=== PATIENT | female | born 1945 | race Caucasian/White ===

== ENCOUNTER 2017-04-15 06:29 | Inpatient (IN) ==
--- NOTE | 2017-04-15 06:52 | EKG Report ---
Stationary ECG Study [facility] ER Test Date: 04/15/2017 6:49:31 AM Pat Name: MEGAN LESTER Department: Room: Gender: F Nuclear Scientist: : 1945 Requested by: Juan Manuel Patiño Order Number: [id number] Bianka MD: JACKSON MICHAEL Intervals [place] Rate: 64 P: 50 ND: 210 QRS: -4 QRSD: 97 T: 61 QT: 417 QTc: 427 Interpretive Statements SINUS RHYTHM WITH PROLONGED ND INTERVAL Electronically Signed On 04-18-17 18:30:34 CDT by JACKSON MICHAEL [email or web address]
[2017-04-15] MEDS ORDERED: DIPH/TET/ACEL PERT BOOSTER VACCINE 0.5 ML VIAL IM ONE ×2 (06:54→07:04)
[2017-04-15 07:07] LABS: Basophils # 0.1 10*3/uL (0.0-0.2); Basophils % 0.6 % (0.0-0.8); Eosinophils # 0.3 10*3/uL (0.0-0.87); Eosinophils % 3.4 % (0.00-10.9); Hematocrit 33.9 VOL% (35.7-47.0); Hemoglobin 11.8 GM/DL (12.0-16.0); Immature Granulocytes % 0.4 %; Immature Granulocytes Absolute 0.04 #; Lymphocytes % 11.4 % (21.3-54.2); Mean Corpuscular HGB Conc 34.8 GM/DL (32-36); Mean Corpuscular Hemoglobin 32 PG (27-34); Mean Corpuscular Volume 92.6 FL (87-102); Mean Platelet Volume 9.2 FL (9.6-12.0); Monocytes # 0.9 10*3/uL (0.11-0.8); Monocytes % 9.7 % (1.7-12.7); Neutrophils # 6.7 10*3/uL (1.4-7.4); Neutrophils % 74.5 % (38.7-73.9); Platelet Count 248 T/CUMM (130-400); Red Blood Count 3.66 MC/CUMM (3.8-5.5); Red Cell Distribution Width 11.7 % (9.3-17.3)
--- NOTE | 2017-04-15 07:18 | CT Report ---
CT head/brain wo con Indication: Syncope Comparison: CT brain dated April 11, 2014 Technique: Multiple axial tomographic images of the brain were obtained without the use of intravenous contrast. Findings: Midline structures are nondisplaced. There is no convincing evidence of acute intracranial hemorrhage . No convincing evidence of hydrocephalus. Mild global volume loss present. Mild periventricular and subcortical hypoattenuation noted which is nonspecific but consistent with chronic microvascular ischemic change. Demyelinating process and vasculitis less likely considerations. Atherosclerotic calcifications demonstrated. Old lacunar infarct of right caudate head The visualized paranasal sinuses and bilateral mastoid air cells are essentially clear. IMPRESSION: No acute intracranial abnormality demonstrated. Chronic findings as detailed above. The CT exam was performed using one or more of the following dose reduction techniques: Automated exposure control, adjustment of the mA and/or kV according to patient size, or use of iterative reconstruction technique. PROCEDURE INTERPRETED AT [facility] Final Report Signed by: Dr Manas Pruett
[2017-04-15 07:26] LABS: PT Patient Result 10.4 SECS; Partial Thromboplastin Time 26.9 SECS (0-40)
--- NOTE | 2017-04-15 07:26 | Emergency Department Note ---
Neftaly Berry Brooke, am scribing for, and in the presence of, Juan Manuel Arroyo MD 06:58 . Dina Berry James D, MD, personally performed the services described in this documentation, ascribed by Belen Higginbotham in my presence, and it is both accurate and complete . Arrival - Arrival Chief Complaint: Syncope Stated Complaint: passed out and fall -my right hip ED Nursing Triage Note: C/C left hip pain, contusion to left face secondary to fall. Pt states she had finished using restroom and was on her way back to bed when she passed out. Pt denies neck pain. Mode of Arrival: Wheelchair Limitations: No Limitations Source: Patient, RN Notes Reviewed Time Seen by Provider: 04/15/17 06:38 - History of Present Illness HPI Narrative: Patient is a 71 year old female who presents to the ED with c/o left hip pain. Patient says she got up between 2300 and 2330, last night, and she thinks she blacked out but does not "really remember" what happened. She fell into the bedroom door and is now complaining of left hip pain. She is able to get up and has been able to walk around a little bit. She also has a laceration and eccymosis near the left eye. There is not currently any active bleeding. Patient denies having any shortness of breath or chest pain but says she has had a non-productive cough. Patient has a history of afib but denies having a rapid heartbeat around the time of this episode. Patient also has PMHx of HTN, TIA, pneumonia, recurring urinary tract infections, colostomy, and vaginal prolapse(bladder tacked). Mg is not a smoker. Her Primary Care Provider is Dr. Bentley. She is unable to remember when she last received a tetanus shot. Onset (ago): hour(s) (7) Allergies/Adverse Reactions: Allergies Allergy/AdvReac Type Severity Reaction Status Date / Time No Known Allergies Allergy Verified 04/15/17 06:42 Home Medications: Home Medications Medication Instructions Recorded Confirmed Type Alendronate Sodium 35 mg PO DIRECTED 02/03/16 02/03/16 History Apixaban [Eliquis] 5 mg PO BID 02/03/16 02/03/16 History Carvedilol 12.5 mg PO BID 02/03/16 02/03/16 History Celecoxib [Celebrex] 100 mg PO BID 02/03/16 02/03/16 History Gabapentin 300 mg PO BEDTIME 02/03/16 02/03/16 History Losartan Potassium 50 mg PO DAILY 02/03/16 02/03/16 History NIFEdipine XL TAB [Procardia Xl] 30 mg PO BEDTIME 02/03/16 02/03/16 History Zolpidem [Ambien] 5 mg PO BEDTIME 02/03/16 02/03/16 History Review of System - Review of System 12 point system: reviewed and no additional remarkable complaints except as stated - Review of System Constitutional: Absent: fever Respiratory: Absent: respiratory distress Musculoskeletal: Present: other (left hip pain) Skin: Present: other (eccymosis and laceration near left eye). Absent: rash Medical,Surgical,& Family Hx - Medical History Cardio: History of: Cardiac Dysrhythmia (afib), Hypertension Neurology: History of: TIA Endocrine: No history of: Diabetes Mellitus (IDDM), Diabetes Mellitus (NIDDM) Respiratory: History of: Pneumonia Genitourinary: History of: Recurring Urinary Tract Infections, Problems ( bladder tacking, vaginal prolapse repair) Gastrointestinal: History of: GI Problems (Colostomy) - Surgical History Cardiac Surgeries: Sugical HX of: Carotid Endarterectomy (left) HEENT Surgeries: Surgical HX of: Carotid Endarterectomy (left) Abdominal Surgeries: Surgical HX of: Abdominal Surgery Reproductive Surgeries: Surgical HX of;: Hysterectomy Orthopedic Surgeries: Surgical HX of;: Orthopedic Surgery (right knee replacement) - Social History Smoking Status: Never smoker Frequency of Alcohol Use: None Type of Drug Use: None Exam Vital Signs: Vital Signs Temperature 98.3 F 04/15/17 06:34 Pulse Rate 66 04/15/17 07:28 Respiratory Rate 20 04/15/17 07:28 Blood Pressure 136/64 04/15/17 07:28 O2 Sat by Pulse Oximetry 97 04/15/17 07:28 GENERAL: This is a well-nourished well-developed white female in no apparent distress. VITAL SIGNS: Reviewed HEENT: 1 cm laceration involving the left supraorbital area. Pupils are equal round react to light. Extraocular movements are intact. Oropharynx is benign with moist mucous membranes. NECK: Neck is soft and supple without tenderness. There are no masses. There is no lymphadenopathy. LUNGS: Lungs are clear to auscultation. Chest rises symmetrically. There is no chest wall tenderness. CV: Heart is regular rate and rhythm with 2/6 to 3/6 systolic ejection murmur, harsh, loudest at the left sternal border. ABDOMEN: Abdomen is soft, nontender to palpation. There are no abdominal abnormal masses palpated. There is no organomegaly. Bowel sounds are present and active. SKIN: Skin is warm and dry. No rash. EXTREMITIES: External rotation of left lower extremity. Minimal tenderness to palpation overlying the left hip. There are no pops, clicks, or crepitus with passive range of motion. There is no pedal edema. NEUROLOGIC: Awake alert and oriented 4. Cranial nerves II through XII are grossly intact. Motor is 5 over 5 in all extremities bilaterally. Course - Consultations Consultation #1: Discussed with hospitalist. Patient will be admitted to their service Time: 08:26 Results - Labs CBC & BMP: 04/15/17 06:55 04/15/17 06:55 Lab Results: I have reviewed the patients labs Labs: Laboratory Tests 04/15/17 06:55 Troponin I < 0.015 - EKG EKG results: interpreted by ERMD - Impressions EKG: Normal sinus rhythm with a rate of 64, first-degree AV block, normal ST-T waves. - Diagnostic Findings Procedure: Chest x-ray: image reviewed by me (No infiltrates, no pleural effusions.), CT: image reviewed by me (CT head: No acute intracranial lesions or hemorrhage.), X-ray: image reviewed by me (Left hip x-ray: Questionable fracture of the greater trochanter.) Disposition Clinical Impression: Syncope, Fracture of left hip, greater troch., Heart murmur Case discussed with: patient Disposition: Still a Patient Condition: Stable Time of Disposition: 07:40
--- NOTE | 2017-04-15 07:38 | CT Report ---
CT hip LT wo con Indication: Left hip pain, fall Comparison: None Technique: Multiple axial tomographic images of the left hip were obtained without the use of intravenous contrast. Coronal and sagittal reformatted images provided. Findings: Acute, minimally comminuted, mildly displaced fracture involving the greater trochanter of the femur. Rectus diastases noted with prominent ventral abdominal hernia containing bowel. This appears similar to CT abdomen pelvis dated August 27, 2010. Status post hysterectomy. Atherosclerotic calcifications demonstrated. IMPRESSION: As above. The CT exam was performed using one or more of the following dose reduction techniques: Automated exposure control, adjustment of the mA and/or kV according to patient size, or use of iterative reconstruction technique. PROCEDURE INTERPRETED AT [facility] DEPARTMENT OF RADIOLOGY Final Report Signed by: Dr Manas Pruett
--- NOTE | 2017-04-15 07:52 | XRay Report ---
XR chest 1V portable Indication: Cough Comparison: Chest x-ray dated April 11, 2014 Technique: Single frontal view of the chest. Findings: The cardiomediastinal silhouette is stable in configuration. Chronic change of the lungs without focal consolidation, pleural effusion, or pneumothorax. Visualized osseous and surrounding soft tissue structures appear grossly unchanged. IMPRESSION: Stable chest x-ray without acute cardiopulmonary process demonstrated. PROCEDURE INTERPRETED AT [facility] DEPARTMENT OF RADIOLOGY Final Report Signed by: Dr Manas Pruett
--- NOTE | 2017-04-15 07:55 | XRay Report ---
XR hip 2v w pelvis LT Indication: Fall, left hip pain Comparison: None Technique: Single frontal view of the pelvis as well as frontal and frog-leg lateral views of the right hip. Findings: Diffuse osteopenia. Minimally displaced fracture involving the greater trochanter of the left femur. IMPRESSION: As above. PROCEDURE INTERPRETED AT [facility] Final Report Signed by: Dr Manas Pruett
[2017-04-15 08:11] LABS: Alanine Aminotransferase 18 U/L (13-56); Albumin 3.7 G/DL (3.4-5.0); Alkaline Phosphatase 56 U/L (45-117); Aspartate Amino Transferase 18 U/L (0-37); Blood Urea Nitrogen 28 MG/DL (7-18); Calcium 9.2 MG/DL (8.5-10.1); Glucose 101 MG/DL (74-106); Osmolality,Calculated 260.2 MOS/KG (273-304); Potassium 4.2 MMOL/L (3.5-5.1); Sodium 127 MMOL/L (136-145); Total Protein 7.3 G/DL (6.4-8.3); Troponin I Only < 0.015 NG/ML (0.00-0.045)
[2017-04-15] MEDS ORDERED: SODIUM CHLORIDE 0.9% 1,000 ML IV STA (08:42)
--- NOTE | 2017-04-15 09:22 | Hospitalist History & Physical ---
Addendum entered and electronically signed by Dale Franz NP 04/16/17 07: 09: Addendum to note. Pt. will be admitted to a monitored bed. Original Note: <Dale Franz - Last Filed: 04/15/17 09:20> Assessment and Plan (1) Hip fracture, left Status: Acute Assessment and plan: Consult surgery for evaluation. Current Visit: Yes (2) Syncope Status: Acute Assessment and plan: Admit to telemetry. Cardiac monitoring. Neuro monitoring. Routine vitals. Echo/ cartoid dopplers. Serial troponins. IV hydration. Review patient's home medications. TSH/UA Current Visit: Yes (3) Hyponatremia Status: Acute Assessment and plan: IV hydration. Recheck labs in am. Current Visit: Yes (4) Hypertension Status: Acute Assessment and plan: Pt.'s blood pressures are stable. Restart home meds if necessary Current Visit: Yes (5) Colostomy in place Status: Chronic Current Visit: Yes History of Present Illness Chief complaint: fall History of present illness: Ms. Woods is a 71 year old white female with a history of hypertension, afib, TIA, pneumonia, diverticulitis, carotid stenosis with carotid endarterectomy that presented to the ED with complaints of hip pain after a fall last night. Pt. is accompanied by her . She states that she got up to use the bathroom last night and "blacked out". Pt. states she fell but doesn't think she hit her head. She states that she has no recollection of what happen. Pt denies chest pain, nauseousness, vision changes, tinnitus, or shortness of breath during the event and now. Pt. reports several "dizzy" episodes in the last couple of months but none in the last few days. She does have a laceration around the left eye. Pt. states she was slightly confused after the fall and remained on the floor until her called granddaughter for assistance. She admits to taking painkillers at home for the left hip discomfort. She also says she is able to stand on the leg but briefly. She states she has changed one of her blood pressure medications (Losartan). Pt is seen by Dr. Bentley, Dr. Hernandez, and Dr. Caruso. Pt. is on Eliquis for afib. On examination in the ED, hip xray revealed mildly displaced fracture to left hip. CXR was stable. Pt's NA is 127 with a bun/creatinine of 28/1.40 respectively. Pt will be admitted to the hospitalist service for further evaluation and treatment. Home Medications Medication Instructions Recorded Confirmed Type Alendronate Sodium 35 mg PO FR 02/03/16 04/15/17 History Apixaban [Eliquis] 5 mg PO BID 02/03/16 04/15/17 History Gabapentin 300 - 600 mg PO BEDTIME 02/03/16 04/15/17 History Losartan Potassium 50 mg PO QAM 02/03/16 04/15/17 History NIFEdipine XL TAB [Procardia Xl] 30 mg PO BEDTIME 02/03/16 04/15/17 History Carvedilol [Carvedilol] 25 mg PO BID 04/15/17 04/15/17 History Fluticasone 50 Mcg Nasal [place] 1 spray BOTH NARES BID 04/15/17 04/15/17 History [Flonase Nasal [place]] HYDROcodone/ACETAMIN 7.5-325 1 tablet PO BID PRN 04/15/17 04/15/17 History [[place] 7.5-325] Montelukast Sodium 10 mg PO QAM 04/15/17 04/15/17 History Rosuvastatin Calcium [Rosuvastatin 20 mg PO BEDTIME 04/15/17 04/15/17 History Calcium] Zolpidem Tartrate [Zolpidem 10 mg PO BEDTIME 04/15/17 04/15/17 History Tartrate] Allergies Allergy/AdvReac Type Severity Reaction Status Date / Time No Known Allergies Allergy Verified 04/15/17 06:42 Medical,Surgical,& Family Hx - Medical History Cardio: History of: Cardiac Dysrhythmia (afib), Hypertension Neurology: History of: TIA Endocrine: No history of: Diabetes Mellitus (IDDM), Diabetes Mellitus (NIDDM) Respiratory: History of: Pneumonia Genitourinary: History of: Recurring Urinary Tract Infections, Problems ( bladder tacking, vaginal prolapse repair) Gastrointestinal: History of: GI Problems (Colostomy) - Surgical History Cardiac Surgeries: Sugical HX of: Carotid Endarterectomy (left) HEENT Surgeries: Surgical HX of: Carotid Endarterectomy (left) Abdominal Surgeries: Surgical HX of: Abdominal Surgery Reproductive Surgeries: Surgical HX of;: Hysterectomy Orthopedic Surgeries: Surgical HX of;: Orthopedic Surgery (right knee replacement) - Family History Family History: Reports;: Family Heart Disease - Social History Smoking Status: Never smoker Frequency of Alcohol Use: None Type of Drug Use: None Marital Status: Lives With:: Spouse Functional capacity: independent ambulation - Constitutional Constitutional: Absent: chills, fever(s) - EENT Eyes: Present: loss of vision Ears: Absent: decreased hearing Nose, mouth and throat: Absent: epistaxis, headache(s) - Cardiovascular Cardiovascular: Present: dyspnea on exertion. Absent: chest pain at rest, edema - Respiratory Respiratory: Present: cough - Gastrointestinal Gastrointestinal: Absent: abdominal pain, nausea, vomiting - Genitourinary Genitourinary: Absent: difficulty urinating - Musculoskeletal Musculoskeletal: Present: limited range of motion - Neurological Neurological: Present: dizziness. Absent: confusion, headache(s) - Psychiatric Psychiatric: Absent: anxiety, confusion - Endocrine Endocrine: Present: heat intolerance - Hematologic/Lymphatic Hematologic/Lymphatic: Present: easy bleeding, easy bruising Exam - Constitutional Vitals: Period Temp Pulse Resp BP Sys/Sarmiento Pulse Ox Last 24 Hr 98.3 F-98.3 F 66-68 16-20 111-136/53-68 96-98 General appearance: no acute distress, over weight - Head Head exam: Present: normal inspection, normocephalic - Eye Eye exam: Present: EOMI. Absent: scleral icterus Pupils: Present: PRIYA - ENT ENT exam: Present: normal exam - Neck Neck exam: Present: normal inspection - Respiratory Respiratory exam: Present: other (coarse) - Cardiovascular Cardiovascular exam: Present: regular rate and rhythm, other (murmur) - GI/Abdominal GI/Abdominal exam: Present: normal bowel sounds, soft, other (right side colostomy). Absent: tenderness - Extremities Exam Extremities exam: Present: normal capillary refill. Absent: full ROM, edema - Neurological Exam Neurological exam: Present: alert, oriented X3 - Psychiatric Psychiatric exam: Present: normal affect, normal mood - Skin Skin exam: Present: normal color, warm, dry Results - Labs CBC & BMP: 04/15/17 06:55 04/15/17 06:55 Lab Results: I have reviewed the past 24 hour labs <Eda Betancourt - Last Filed: 08/03/17 13:40> Assessment and Plan (1) Hip fracture, left Status: Acute Assessment and plan: will hold eliquis Current Visit: Yes (2) Syncope Status: Acute Assessment and plan: most likely due to orthostatic hypotension, gentle hydration with NS Current Visit: Yes (3) Hypertension Status: Acute Assessment and plan: most likely orthostatic will hold most of her blood pressure meds, cont coreg Current Visit: Yes (4) Hyponatremia Status: Acute Current Visit: Yes (5) Atrial fibrillation Status: Acute Assessment and plan: cont coreg, hold eliquis until decision about surgery is made Current Visit: Yes History of Present Illness History of present illness: Ms. Woods is a 71 year old female seen and examined. Agree with above, right index finger bruised and she hit her left eye. On eliquis for afib but is currently in SR. She may be orthostatic, blood pressure low in er. I will consult Dr. Ladd and hold her eliquis - Constitutional Constitutional: Absent: headache(s) - EENT Ears: Absent: ear discharge - Cardiovascular Cardiovascular: Present: dyspnea - Respiratory Respiratory: Present: dyspnea, dyspnea on exertion - Neurological Neurological: Present: syncope. Absent: focal weakness - Psychiatric Psychiatric: Present: depression - Endocrine Endocrine: Present: fatigue Exam - Constitutional Vitals: Period Temp Pulse Resp BP Sys/[place] Pulse Ox Last 24 Hr 97.6 F-98.3 F 66-80 16-20 111-143/53-83 96-98 - Eye Eye exam: Present: other (bruising around right eye ) Pupils: Present: normal accommodation - ENT ENT exam: Present: normal external ear exam - Neck Neck exam: Absent: lymphadenopathy, thyromegaly - Respiratory Respiratory exam: Present: other - Neurological Exam Neurological exam: Present: CN II-XII intact, reflexes normal Results - Labs CBC & BMP: 04/15/17 06:55 04/15/17 06:55 - EKG EKG shows: sinus rhythm (No ST changes but has prolonged pr ) - Diagnostic Findings Procedure: Chest x-ray: report reviewed by me (Nothing acute), CT: report reviewed by me (Minimally comminuted mildly displaced fracture of the greater trochanter of the femur. Prominent abdominal hernia containing bowel), X-ray: report reviewed by me (osteoarthritis of DIP joint )
--- NOTE | 2017-04-15 11:32 | XRay Report ---
XR finger RT Indication: Fall. Right index finger 3 views: Joint space narrowing and osteophyte development of the DIP joint is present. No acute fracture or dislocation shown. No soft tissue injury demonstrated. Impression: Osteoarthritis of the DIP joint. PROCEDURE INTERPRETED AT [facility] DEPARTMENT OF RADIOLOGY Final Report Signed by: Khurram Ramirez M.D.
[2017-04-15] MEDS ORDERED: ONDANSETRON 4 MG/2 ML VIAL IV PRN (12:27)
[2017-04-15] MEDS ORDERED: ACETAMINOPHEN 325 MG TABLET PO PRN (12:27)
[2017-04-15] MEDS: SODIUM CHLORIDE 0.9% 1,000 ML IV SCH (12:48)
[2017-04-15] MEDS ORDERED: CARVEDILOL 25 MG TABLET PO SCH (14:00)
[2017-04-15 14:03] LABS: Hemoglobin 12.9 GM/DL (12.0-16.0)
[2017-04-15 14:42] LABS: Troponin I Only < 0.015 NG/ML (0.00-0.045)
[2017-04-15 14:51] LABS: Apearance,Urine CLEAR (Clear); Bacteria,Urine Occasional /HPF (Few); Bilirubin,Urine Negative (Negative); Blood, Urine Large mg/dL (Negative); Glucose,Urine (UA) Negative (Negative); Ketones,Urine Negative (Negative); Nitrite,Urine Negative (Negative); Protein,Urine Negative; RBC,Urine 3 /HPF (0-4); Urine Color Colorless (Yellow); Urine Specific Gravity 1.003 (1.001-1.035); Urine Urobilinogen < 2.0 EU/DL (0.2-1.0); WBC,Urine 15 /HPF (0-6)
--- NOTE | 2017-04-15 18:42 | ECHO Report ---
Gianna Woods Exam Date: 04/15/2017 13:55 Referring Physician: Technologist: brandie Priest ARDMS, RVT Age: 71 Ht (in): 68 Wt (lb): 174 Gender: F Exam Location: [facility] Echo Indications: Syncope and collapse, Essential (primary) hypertension, Hip Fx, Hyponutremia, Colostomy BP: 136 / 64 HR: 81 Rhythm: Sinus Technical Quality: IMPRESSIONS Normal LV systolic function, ejection fraction 65%. Grade 1/4 diastolic dysfunction. Mild concentric left ventricular hypertrophy. Mild right ventricular dilation. Mild mitral regurgitation. Mild aortic regurgitation. Trace tricuspid regurgitation. Aortic sclerosis without stenosis. MEASUREMENTS (Male / Female) Normal Values 2D ECHO LV Diastolic Diameter PLAX 3.0 cm 4.2 - 5.9 / 3.9 - 5.3 cm LV Systolic Diameter PLAX 1.4 cm LV Fractional Shortening PLAX 53.6 % IVS Diastolic Thickness 1.4 cm 0.6 - 1.0 / 0.6 - 0.9 cm LVPW Diastolic Thickness 1.3 cm 0.6 - 1.0 / 0.6 - 0.9 cm RV Internal Dim ED PLAX 3.6 cm Aortic Root Diameter 3.1 cm LA Systolic Diameter LX 3.3 cm 3.0 - 4.0 / 2.7 - 3.8 cm DOPPLER TR Peak Velocity 276.0 cm/s TR Peak Gradient 30.5 mmHg FINDINGS Left Ventricle Normal left ventricular cavity size. Mild left ventricular hypertrophy. Left ventricular ejection fraction is estimated at 65%. Right Ventricle The right ventricle is mildly dilated. Right Atrium The right atrium is normal in size. Left Atrium The left atrium is normal in size. Mitral Valve Mitral valve sclerosis. Mitral annular calcification. Mild mitral valve regurgitation. Aortic Valve Aortic valve sclerosis without stenosis. Mild aortic regurgitation. Tricuspid Valve Morphologically normal tricuspid valve. Trace tricuspid valve regurgitation. Tricuspid regurgitation velocities suggest a PAP of 40 mmHg. Pulmonic Valve Morphologically normal pulmonic valve without significant stenosis. There is no pulmonic regurgitation. Pericardium Normal pericardium without effusion. Aorta Normal ascending aorta dimension. Marley Smith MD (Electronically Signed) Final Date: 15 April 2017 18:41
--- NOTE | 2017-04-15 18:55 | Orthopedic Consult Note ---
History of Present Illness Chief complaint: Left hip fracture, greater trochanter History of present illness: Ms. Woods is a 71 year old female who reportedly fell last night at home family reports that she was ambulatory cut herself in the car prior to presenting to [facility] emergency room the workup there included x-ray studies and CT scan which is confirmed a fracture about the left hip greater trochanter the fall as a result of the syncopal episode so she is on a monitored bed I have been asked to evaluate regarding her left hip fracture Examination confirms well-developed nourished white female she has no pain with gentle range of motion of either upper extremity are about the right lower on the left side she has pain with palpation in the lateral left hip region but not much in the way discomfort with gentle range of motion about the left knee which includes flexion of the hip and gentle internal and external rotation there is no pain just about the ankle X-ray and CT scan confirm a minimally displaced greater trochanter fracture I do not see any extension across the inotropic region. Impression is greater trochanter fracture left hip Plan: I discussed with she and her family the nonoperative treatment for this fracture is indicated we will get physical therapy to see her in the morning and start mobilizing with crutches and a touchdown weightbearing fashion we may allow her to advance of her comfort is is good to a 25% in the initial few weeks again nonoperative treatment. This was discussed she appears to understand and agrees with the plan Home Medications Medication Instructions Recorded Confirmed Type Alendronate Sodium 35 mg PO FR 02/03/16 04/15/17 History Apixaban [Eliquis] 5 mg PO BID 02/03/16 04/15/17 History Gabapentin 300 - 600 mg PO BEDTIME 02/03/16 04/15/17 History Losartan Potassium 50 mg PO QAM 02/03/16 04/15/17 History NIFEdipine XL TAB [Procardia Xl] 30 mg PO BEDTIME 02/03/16 04/15/17 History Carvedilol [Carvedilol] 25 mg PO BID 04/15/17 04/15/17 History Fluticasone 50 Mcg Nasal [place] 1 spray BOTH NARES BID 04/15/17 04/15/17 History [Flonase Nasal [place]] HYDROcodone/ACETAMIN 7.5-325 1 tablet PO BID PRN 04/15/17 04/15/17 History [[place] 7.5-325] Montelukast Sodium 10 mg PO QAM 04/15/17 04/15/17 History Rosuvastatin Calcium [Rosuvastatin 20 mg PO BEDTIME 04/15/17 04/15/17 History Calcium] Zolpidem Tartrate [Zolpidem 10 mg PO BEDTIME 04/15/17 04/15/17 History Tartrate] Allergies Allergy/AdvReac Type Severity Reaction Status Date / Time No Known Allergies Allergy Verified 04/15/17 06:42 Medical,Surgical,& Family Hx - Medical History Cardio: History of: Cardiac Dysrhythmia (afib), Hypertension Neurology: History of: TIA Endocrine: No history of: Diabetes Mellitus (IDDM), Diabetes Mellitus (NIDDM) Respiratory: History of: Pneumonia Genitourinary: History of: Recurring Urinary Tract Infections, Problems ( bladder tacking, vaginal prolapse repair) Gastrointestinal: History of: Diverticulitis/ Diverticulosis, GI Problems ( Colostomy) Musculoskeletal: History of: Musculoskeletal Problems (left hip fracture) - Surgical History Cardiac Surgeries: Sugical HX of: Carotid Endarterectomy (left) HEENT Surgeries: Surgical HX of: Carotid Endarterectomy (left) Abdominal Surgeries: Surgical HX of: Abdominal Surgery Reproductive Surgeries: Surgical HX of;: Hysterectomy Orthopedic Surgeries: Surgical HX of;: Orthopedic Surgery (right knee replacement), Total Knee Replacement (right) - Family History Family History: Reports;: Family Heart Disease, Family Hypertension, Family Stroke - Social History Smoking Status: Never smoker Frequency of Alcohol Use: None Type of Drug Use: None Exam - Constitutional Vitals: Period Temp Pulse Resp BP Sys/Sarmiento Pulse Ox Last 24 Hr 97.6 F-98.4 F 66-80 16-20 111-143/53-83 96-99 Results - Labs CBC & BMP: 04/15/17 13:47 04/15/17 06:55
[2017-04-15] MEDS: CARVEDILOL 3.125 MG TABLET PO SCH ×2 (20:42→20:52)
[2017-04-15] MEDS: GABAPENTIN 300 MG CAPSULE PO SCH (20:51)
[2017-04-15] MEDS: ROSUVASTATIN 20 MG TABLET PO SCH (20:52)
[2017-04-15] MEDS: ZALEPLON 5 MG CAPSULE PO SCH ×2 (20:52→21:34)
[2017-04-15] MEDS ORDERED: APIXABAN 5 MG TABLET PO SCH (21:00)
[2017-04-15 21:36] LABS: Hematocrit 33.2 VOL% (35.7-47.0); Hemoglobin 11.3 GM/DL (12.0-16.0)
[2017-04-15 22:07] LABS: Troponin I Only < 0.015 NG/ML (0.00-0.045)
[2017-04-16] MEDS: FLUTICASONE 50 MCG NASAL SPRAY 16 GM BOTTLE BOTH NARES SCH ×3 (02:27→21:36)
[2017-04-16] MEDS: SODIUM CHLORIDE 0.9% 1,000 ML IV SCH ×2 (02:28→18:14)
[2017-04-16 05:33] LABS: Basophils # 0.1 10*3/uL (0.0-0.2); Basophils % 0.8 % (0.0-0.8); Eosinophils # 0.3 10*3/uL (0.0-0.87); Eosinophils % 5.7 % (0.00-10.9); Hematocrit 32.4 VOL% (35.7-47.0); Hemoglobin 11.3 GM/DL (12.0-16.0); Immature Granulocytes % 0.2 %; Immature Granulocytes Absolute 0.01 #; Lymphocytes # 1.3 10*3/uL (1.4-4.0); Lymphocytes % 21.4 % (21.3-54.2); Mean Corpuscular HGB Conc 34.9 GM/DL (32-36); Mean Corpuscular Hemoglobin 33 PG (27-34); Mean Corpuscular Volume 93.4 FL (87-102); Mean Platelet Volume 9.6 FL (9.6-12.0); Monocytes # 0.6 10*3/uL (0.11-0.8); Monocytes % 10.7 % (1.7-12.7); Neutrophils # 3.7 10*3/uL (1.4-7.4); Neutrophils % 61.2 % (38.7-73.9); Platelet Count 231 T/CUMM (130-400); Red Blood Count 3.47 MC/CUMM (3.8-5.5)
[2017-04-16 06:10] LABS: Free T4 (Free Thyroxine) 1.02 NG/DL (0.76-1.46); Troponin I Only < 0.015 NG/ML (0.00-0.045)
[2017-04-16 06:17] LABS: Calcium 8.1 MG/DL (8.5-10.1); Magnesium 1.9 MG/DL (1.8-2.4); Osmolality,Calculated 270.1 MOS/KG (273-304); Potassium 4.3 MMOL/L (3.5-5.1); Risk Ratio 3.56; Thyroid Stimulating Hormone 2.04 uIU/ml (0.358-3.74)
[2017-04-16] MEDS: MONTELUKAST 10 MG TABLET PO SCH (09:26)
[2017-04-16] MEDS: CARVEDILOL 3.125 MG TABLET PO SCH ×2 (09:26→18:14)
[2017-04-16] MEDS: PANTOPRAZOLE 40 MG TABLET PO SCH (09:26)
--- NOTE | 2017-04-16 17:30 | Cardiology Consult Note ---
Ney Berry Vanessa, RN, am scribing for, and in the presence of, Arturo Valdes MD 17:29. Assessment and Plan - Time spent with patient Time spent with patient: Greater than 30 minutes (Due to assessment, planning, condition, and medication review) (1) Hyponatremia Status: Acute Assessment and plan: SEE PLAN OF CARE LISTED BELOW. Current Visit: Yes (2) Hip fracture, left Status: Acute Assessment and plan: SEE PLAN OF CARE LISTED BELOW. Current Visit: Yes (3) Syncope Status: Acute Assessment and plan: SEE PLAN OF CARE LISTED BELOW. Current Visit: Yes (4) Paroxysmal atrial fibrillation Status: Chronic Assessment and plan: SEE PLAN OF CARE LISTED BELOW. Current Visit: Yes (5) Hyperlipidemia Status: Chronic Assessment and plan: SEE PLAN OF CARE LISTED BELOW. Current Visit: Yes (6) History of carotid artery disease Status: Chronic Assessment and plan: SEE PLAN OF CARE LISTED BELOW. Current Visit: Yes (7) Hypertension Status: Chronic Assessment and plan: SEE PLAN OF CARE LISTED BELOW. Current Visit: Yes (8) PVD (peripheral vascular disease) Status: Chronic Assessment and plan: SEE PLAN OF CARE LISTED BELOW. Current Visit: Yes History of Present Illness - Data of Consult Consult date: 04/16/17 Requesting Physician: Nazia Dyson - Consult Narrative Reason for consult: Status post fall; evaluate for syncope History of present illness: PRIMARY DISH PERSON: DR. CARUSO Ms. Woods is a 71 year old white female with risk factor significant for: hypertension, hyperlipidemia, obesity, and she has never been a smoker. Patient has medical history of paroxysmal atrial fibrillation and is chronically anticoagulated with Eliquis for stroke prevention. She also has a history of TIA, nonrheumatic mitral regurgitation and aortic valve insufficiency , PVD, and AAA without rupture. Patient was last seen in clinic by Dr. Caruso on February 03, and at time of visit, BP well controlled on current regimen, atrial fibrillation appeared to be well controlled on current regimen but she did report some infrequent episodes of mild, brief palpitations but no sustained episodes of atrial fibrillation. She had also recently been seen by Dr. De La Fuente for complete occlusion of right carotid artery but is reportedly not a surgical candidate and is being managed conservatively. She has undergone previous left carotid endarterectomy, has recently had carotid Doppler ultrasound for routine follow-up, and reports she was told there was no significant change. Patient had no anginal symptoms or complaints at time of visit. EKG demonstrated regular rate and rhythm. Ms. Woods is currently admitted to [facility] after presenting to [facility] ED on the morning of April 15 complaining of left hip pain after a syncopal episode the night before at home. Head CT with chronic microvascular changes but no acute abnormality. EKG demonstrated sinus rhythm, first-degree AVB with no ectopy. Chest x-ray normal. X-ray of the hip with a minimally displaced fracture of left femur. Lab work shows hyponatremia with sodium 127. Patient was admitted by hospital medicine for further observation, evaluation, and IV fluid hydration. Cardiology was asked to see to evaluate for syncope. Since admission, she has had echocardiogram which shows mild LVH with normal LV systolic function, EF 65%, mild diastolic dysfunction, mild MR and TR with PA pressure 40 mmHg. Cardiac monitoring continues to demonstrate regular rate and rhythm with no ectopy or dysrhythmia appreciated. Serial cardiac biomarkers have remained normal. Urinalysis with moderate leukocytosis and culture is pending. This afternoon, patient is resting quietly with no acute distress noted. She is alert and oriented 3, and she is pleasant. Patient has already been evaluated by orthopedic surgery, and patient will not require surgical treatment for her hip fracture. Patient has also been seen by physical therapy to assist with mobilization, and patient is planned for discharge home soon to continue physical therapy with home health assistance. Afebrile, vitals stable. Patient tells me that on Wednesday evening, she had fallen asleep in her bed, woke up a little while later to use the bathroom. She walked out of her room and across the hallway to the bathroom. After using the bathroom, patient reports she felt fine and was crossing the hallway to go back to her bedroom when she had a syncopal episode which she does not recollect. Reports that she woke up face down in her hallway between her bathroom and bedroom. She does have confusion on the left side of her face and some swelling and bruising on top of right hand. Ecchymotic bruises of bilateral upper extremities of various sizes and stages of healing that she reports are related to previous venipuncture. Patient reports that this has happened before. Reports last time this happened was approximately 10 years ago after she had been hospitalized for a significant amount of time due to complications after an elective gynecologic surgery. 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 Reports not long after discharge home after prolonged hospital course, she was still "very weak" and just "passed out." Denies having formal evaluation for this. Denies recent cough, fever, chills. ASSESSMENT/PLAN: 1. SYNCOPE - Cardiac biomarkers, EKG, and cardiac monitoring benign for source of syncope. 2. HYPERTENSION -overall, fairly well-controlled. Continue current plan of care. 3. HYPERLIPIDEMIA -lipid panel this morning overall unremarkable. Continue rosuvastatin. 4. PAROXYSMAL ATRIAL FIBRILLATION -remains in sinus rhythm this admission. Continue beta-adam. She is anticoagulated with Eliquis. 5. HISTORY OF CAROTID DISEASE -patient routinely follows with Dr. Hernandez and has had recent carotid Doppler ultrasound. She has had previous left carotid endarterectomy. She has total occlusion of right carotid artery which is reportedly not amenable to surgical intervention. 6. LEFT HIP FRACTURE - Minimal fracture and will not require surgical intervention at this time per orthopedic surgery. She will be discharged home with home health and physical therapy. 7. PVD/NEUROPATHY -continue Neurontin. This lady has severe carotid disease followed by Dr. Hernandez and has been treated conservatively. She has had a syncopal episode and should not be driving we reviewed this. I do not feel like there is anything active from a rhythm standpoint going on but we are going to check a Holter monitor. She is insistent on going home and will watch her overnight in the she stable from orthopedic standpoint and she will be able to go home tomorrow. I have discussed in detail the particulars of this case and I have examined the patient and reviewed the patient's chart both current and old. I was directly involved in the patient's evaluation and management and I completely agree with Genna Brewster RN regarding this patient's evaluation and treatment plan. CC: Nazia Dyson MD - Home Medications and Allergies Home Medications: Home Medications Medication Instructions Recorded Confirmed Type Alendronate Sodium 35 mg PO FR 02/03/16 04/15/17 History Apixaban [Eliquis] 5 mg PO BID 02/03/16 04/15/17 History Gabapentin 300 - 600 mg PO BEDTIME 02/03/16 04/15/17 History Losartan Potassium 50 mg PO QAM 02/03/16 04/15/17 History NIFEdipine XL TAB [Procardia Xl] 30 mg PO BEDTIME 02/03/16 04/15/17 History Carvedilol [Carvedilol] 25 mg PO BID 04/15/17 04/15/17 History Fluticasone 50 Mcg Nasal [place] 1 spray BOTH NARES BID 04/15/17 04/15/17 History [Flonase Nasal [place]] HYDROcodone/ACETAMIN 7.5-325 1 tablet PO BID PRN 04/15/17 04/15/17 History [[place] 7.5-325] Montelukast Sodium 10 mg PO QAM 04/15/17 04/15/17 History Rosuvastatin Calcium [Rosuvastatin 20 mg PO BEDTIME 04/15/17 04/15/17 History Calcium] Zolpidem Tartrate [Zolpidem 10 mg PO BEDTIME 04/15/17 04/15/17 History Tartrate] Allergies/Adverse Reactions: Allergies Allergy/AdvReac Type Severity Reaction Status Date / Time No Known Allergies Allergy Verified 04/15/17 06:42 - Constitutional Constitutional: Absent: anorexia, chills, daytime sleepiness, fatigue, fever(s) , lethargy, weakness, weight gain, weight loss - EENT Eyes: Absent: blurry vision Nose, mouth and throat: Present: nasal congestion, sinus pressure. Absent: dysphagia, epistaxis, lip swelling, neck mass, sore throat, tongue swelling, vertigo - Cardiovascular Cardiovascular: Absent: chest pain at rest, chest pain with activity, claudication, diaphoresis, dyspnea, dyspnea on exertion, edema, radiating jaw, neck or arm pain, lightheadedness, orthopnea, palpitations, PND - Respiratory Respiratory: Absent: cough, dyspnea, hemoptysis, dyspnea on exertion, change in phlegm color - Gastrointestinal Gastrointestinal: Absent: abdominal pain, bloating, constipation, diarrhea, dysphagia, early satiety, melena, nausea, vomiting, jaundice - Genitourinary Genitourinary: Absent: dysuria, flank pain, hematuria, urinary incontinence - Musculoskeletal Musculoskeletal: Present: arthralgias, limited range of motion (Due to current hip fracture), myalgias - Neurological Neurological: Present: abnormal gait. Absent: abnormal speech, confusion, dizziness, syncope, tremor(s) - Psychiatric Psychiatric: Absent: anxiety, confusion, depression - Endocrine Endocrine: Absent: cold intolerance, heat intolerance - Hematologic/Lymphatic Hematologic/Lymphatic: Absent: easy bleeding, easy bruising Medical,Surgical,& Family Hx - Medical History Cardio: History of: Cardiac Dysrhythmia (afib), Hypertension, PVD No history of: [place], Pacemaker Psychological: History of: Depression Neurology: History of: TIA No history of: Dementia, Seizures Endocrine: History of: Dyslipidemia No history of: Diabetes Mellitus (IDDM), Diabetes Mellitus (NIDDM), Thyroid Disorder Respiratory: History of: Pneumonia, Respiratory Problems (History of ARDS) No history of: COPD Renal: No history of: Renal Problems Genitourinary: History of: Recurring Urinary Tract Infections, Problems ( bladder tacking, vaginal prolapse repair) Gastrointestinal: History of: Diverticulitis/ Diverticulosis, GERD, GI Problems (Colostomy) Musculoskeletal: History of: Musculoskeletal Problems (left hip fracture) Hematology: No history of: Blood Transfusion Reaction, Clotting Problems Other: No history of: Cancer - Surgical History Cardiac Surgeries: Sugical HX of: Carotid Endarterectomy (left) Patient Denies: Internal Defibrillator HEENT Surgeries: Surgical HX of: Carotid Endarterectomy (left) Abdominal Surgeries: Surgical HX of: Abdominal Surgery Reproductive Surgeries: Surgical HX of;: Hysterectomy Orthopedic Surgeries: Surgical HX of;: Orthopedic Surgery (right knee replacement), Total Knee Replacement (right) - Family History Family History: Reports;: Family Heart Disease, Family Hypertension, Family Stroke - Social History Smoking Status: Never smoker Frequency of Alcohol Use: None Type of Drug Use: None Functional capacity: independent ambulation Physical Examination Vital Signs Temp Pulse Resp BP Pulse Ox 98.3 F 67 16 111/58 96 04/15/17 06:34 04/15/17 06:34 04/15/17 06:34 04/15/17 06:34 04/15/17 06:34 General: Present: Appears Well, No Apparent Distress HEENT: Present: PERRL, Normocephaly, Other (Contusion left lateral forehead area ). Absent: Jaundice, Pallor Neck: Present: Supple Neck, Midline Trachea, No JVD/HJR, No Bruit Cardiac: Present: Reg Rate and Rhythm, Systolic Murmur. Absent: Tachycardia, Bradycardia Lungs: Present: Clear Ascult./Percussion, No Wheeze, Rales, Rhonchi. Absent: Oxygen Neuro: Present: Grossly Intact. Absent: Numbness, Tingling, Weakness, Resting Tremor, Essential Tremor Abdomen: Present: Soft, Active Bowel Sounds, No Masses, No Pulsations/Bruits. Absent: Ascites, Tender, Firm, Distended Skin: Present: Bruising (Ecchymotic bruising bilateral upper extremities), Other (Swelling and moderate ecchymotic bruise top of right hand R/T fall). Absent: Rash, Suspicious Lesions Musculoskeletal: Present: Decreased Range of Motion (Due to current fracture), No Fluid Collection Extremities: Present: No Clubbing, No Cyanosis, No Edema, Normal Upper Extr. Pulses (3+ bilaterally), Normal Lower Extr. Pulses (3+ bilaterally), Capillary Refill (Normal), Other (Warm, dry). Absent: Petechiae Result/EKG - Labs CBC & BMP: 04/16/17 04:18 04/16/17 04:18 Lab Results: I have reviewed the past 24 hour labs Labs: Laboratory Results - last 24 hr 04/15/17 04/15/17 04/15/17 14:15 20:50 20:50 WBC RBC Hgb 11.3 L Hct 33.2 L MCV MCH MCHC RDW Plt Count MPV Neut % (Auto) Lymph % (Auto) [place] % (Auto) Eos % (Auto) Baso % (Auto) Neut # (Auto) Lymph # (Auto) [place] # (Auto) Eos # (Auto) Baso # (Auto) Immature Gran % Nucleated RBC % Immature Gran # Nucleated RBCs # Immature Plt Fraction Sodium Potassium Chloride Carbon Dioxide Anion Gap BUN Creatinine GFR Calculation BUN/Creatinine Ratio Glucose Hemoglobin A1c Calculated Osmolality Calcium Magnesium Total Creatine Kinase 70 D CK-MB (CK-2) < 1.0 Troponin I < 0.015 Triglycerides Cholesterol LDL Cholesterol VLDL Cholesterol HDL Cholesterol Heart Disease Risk Ratio Free T4 TSH 3rd Generation Urine Color Colorless Urine Appearance Clear Urine pH 6.0 Ur Specific [place] 1.003 Urine Protein Negative Urine Glucose (UA) Negative Urine Ketones Negative Urine Blood Large Urine Nitrate Negative Urine Bilirubin Negative Urine Urobilinogen < 2.0 H Urine Leukocytes Moderate H Urine RBC 3 Urine WBC 15 Urine Bacteria Occasional Ur Culture Indicated? Results to follow 04/16/17 04/16/17 04/16/17 04:18 04:18 04:18 WBC 6.0 D RBC 3.47 L Hgb 11.3 L Hct 32.4 L MCV 93.4 MCH 33 MCHC 34.9 RDW 12.0 Plt Count 231 MPV 9.6 Neut % (Auto) 61.2 Lymph % (Auto) 21.4 [place] % (Auto) 10.7 Eos % (Auto) 5.7 Baso % (Auto) 0.8 Neut # (Auto) 3.7 Lymph # (Auto) 1.3 L [place] # (Auto) 0.6 Eos # (Auto) 0.3 Baso # (Auto) 0.1 Immature Gran % 0.2 Nucleated RBC % 0.0 Immature Gran # 0.01 Nucleated RBCs # 0.00 Immature Plt Fraction 0.0 Sodium 135 L Potassium 4.3 Chloride 106 Carbon Dioxide 22 Anion Gap 11.3 BUN 17 D Creatinine 0.90 GFR Calculation 73 BUN/Creatinine Ratio 18.00 Glucose 89 Hemoglobin A1c Calculated Osmolality 270.1 L Calcium 8.1 L Magnesium 1.9 Total Creatine Kinase 61 CK-MB (CK-2) < 1.0 Troponin I < 0.015 Triglycerides 100 Cholesterol 203 H LDL Cholesterol 121.0 VLDL Cholesterol 20.0 HDL Cholesterol 57 Heart Disease Risk Ratio 3.56 Free T4 1.02 TSH 3rd Generation 2.040 Urine Color Urine Appearance Urine pH Ur Specific [place] Urine Protein Urine Glucose (UA) Urine Ketones Urine Blood Urine Nitrate Urine Bilirubin Urine Urobilinogen Urine Leukocytes Urine RBC Urine WBC Urine Bacteria Ur Culture Indicated? 04/16/17 04:18 WBC RBC Hgb Hct MCV MCH MCHC RDW Plt Count MPV Neut % (Auto) Lymph % (Auto) [place] % (Auto) Eos % (Auto) Baso % (Auto) Neut # (Auto) Lymph # (Auto) [place] # (Auto) Eos # (Auto) Baso # (Auto) Immature Gran % Nucleated RBC % Immature Gran # Nucleated RBCs # Immature Plt Fraction Sodium Potassium Chloride Carbon Dioxide Anion Gap BUN Creatinine GFR Calculation BUN/Creatinine Ratio Glucose Hemoglobin A1c 5.5 Calculated Osmolality Calcium Magnesium Total Creatine Kinase CK-MB (CK-2) Troponin I Triglycerides Cholesterol LDL Cholesterol VLDL Cholesterol HDL Cholesterol Heart Disease Risk Ratio Free T4 TSH 3rd Generation Urine Color Urine Appearance Urine pH Ur Specific [place] Urine Protein Urine Glucose (UA) Urine Ketones Urine Blood Urine Nitrate Urine Bilirubin Urine Urobilinogen Urine Leukocytes Urine RBC Urine WBC Urine Bacteria Ur Culture Indicated? - Diagnostic Findings Procedure: Chest x-ray: image reviewed by me, report reviewed by me, CT: image reviewed by me, report reviewed by me - EKG EKG results: interpreted by me, no acute changes EKG shows: sinus rhythm Specialty Discharge - Follow Up or Referrals Follow up with: Juan Manuel Ladd Jr., MD [Physician] - 05/05/17 8:30 am (3 WEEKS) I, Arturo Valdes MD, personally performed the services described in this documentation, ascribed by Genna Brewster RN in my presence, and it is both accurate and complete [id number] .
--- NOTE | 2017-04-16 18:53 | Hospitalist Progress Note ---
Hospitalist: Subjective Interval history: Pain in the hip is controlled Exam - Constitutional Vitals: Period Temp Pulse Resp BP Sys/Sarmiento Pulse Ox Last 24 Hr 97.2 F-98.6 F 62-86 16-20 132-161/67-88 95-98 Exam: General: No Acute Distress HEENT: Normocephalic, atraumatic, Extra ocular movements intact Neck: Supple, No JVD Chest: Clear to auscultation B/L CV: S1 + S2 audible without murmur, gallop or rub Abd: soft, NT, Non-distended, BS + Ext: No edema Skin: No purpura, bruising or rash Rheumatologic: No Joint deformities Neurologic: Strength 5/5 all extremities, no gross sensory deficits Results - Labs CBC & BMP: 04/16/17 04:18 04/16/17 04:18 - Impressions Assessment and Plan (1) Hip fracture, left Status: Acute Assessment and plan: Seen by orthopedics, nonoperative management Current Visit: Yes (2) Syncope Status: Acute Assessment and plan: May benefit from an event monitor on discharge Current Visit: Yes (3) Hyponatremia Status: Acute Assessment and plan: IV hydration. Recheck labs in am. Current Visit: Yes (4) Hypertension, Ess Status: Acute Current Visit: Yes (5) Colostomy in place Status: Chronic Current Visit: Yes (6) Paroxysmal A. fib Status: Chronic Current Visit: Yes Specialty Discharge - Follow Up or Referrals Follow up with: Juan Manuel Ladd Jr., MD [Physician] - 05/05/17 8:30 am (3 WEEKS)
[2017-04-16] MEDS: ZALEPLON 5 MG CAPSULE PO SCH (21:35)
[2017-04-16] MEDS: GABAPENTIN 300 MG CAPSULE PO SCH (21:35)
[2017-04-16] MEDS: ROSUVASTATIN 20 MG TABLET PO SCH (21:35)
[2017-04-17] MEDS: SODIUM CHLORIDE 0.9% 1,000 ML IV SCH (06:06)
[2017-04-17] MEDS: MONTELUKAST 10 MG TABLET PO SCH (08:30)
[2017-04-17] MEDS: CARVEDILOL 3.125 MG TABLET PO SCH (08:30)
[2017-04-17] MEDS: PANTOPRAZOLE 40 MG TABLET PO SCH (08:31)
[2017-04-17] MEDS: FLUTICASONE 50 MCG NASAL SPRAY 16 GM BOTTLE BOTH NARES SCH (08:31)
--- NOTE | 2017-04-17 08:49 | Orthopedic Progress Note ---
Orthopedics - Subjective Interval history: This lady is alert and oriented. She had recently sustained a greater trochanter fracture evaluated by Dr. Ladd with the decision that no surgical intervention was required. The fracture occurred as a result of syncope and for that reason she is remaining in the hospital to complete cardiology and related evaluations. Recommendations: No change in orthopedic plan Exam - Constitutional Vitals: Period Temp Pulse Resp BP Sys/[place] Pulse Ox Last 24 Hr 97.2 F-98.3 F 67-86 16-20 151-161/72-88 97-100 Results - Labs CBC & BMP: 04/16/17 04:18 04/16/17 04:18 Specialty Discharge - Follow Up or Referrals Follow up with: Juan Manuel Ladd Jr., MD [Physician] - 05/05/17 8:30 am (3 WEEKS)
--- NOTE | 2017-04-17 09:14 | Cardiology Progress Note ---
Assessment and Plan (1) Hyponatremia Status: Acute Assessment and plan: SEE PLAN OF CARE LISTED BELOW. Current Visit: Yes (2) Hip fracture, left Status: Acute Assessment and plan: SEE PLAN OF CARE LISTED BELOW. Current Visit: Yes (3) Syncope Status: Acute Assessment and plan: SEE PLAN OF CARE LISTED BELOW. 04/17: She can be discharged to follow-up with Dr. Caruso in 3 days. She has been instructed to call his office on Wednesday for an appointment. She has been instructed not to drive. With a history of syncope this needs to be completely evaluated prior to allowing her to drive. Current Visit: Yes (4) Paroxysmal atrial fibrillation Status: Chronic Assessment and plan: SEE PLAN OF CARE LISTED BELOW. Current Visit: Yes (5) Hyperlipidemia Status: Chronic Assessment and plan: SEE PLAN OF CARE LISTED BELOW. Current Visit: Yes (6) History of carotid artery disease Status: Chronic Assessment and plan: SEE PLAN OF CARE LISTED BELOW. Current Visit: Yes (7) Hypertension Status: Chronic Assessment and plan: SEE PLAN OF CARE LISTED BELOW. Current Visit: Yes (8) PVD (peripheral vascular disease) Status: Chronic Assessment and plan: SEE PLAN OF CARE LISTED BELOW. Current Visit: Yes Cardiology - PN: Subj Interval history: The patient tells me that she had a carotid Doppler study Dr. Hernandez's office about a week ago and so we will cancel the study for today. We will place a Holter and let her be discharged to see Dr. Caruso in the next several days at his office. She is not to drive and I made this clear to her until we can have this fully evaluated. Exam (Progress Note) - Constitutional Vitals: Period Temp Pulse Resp BP Sys/Sarmiento Pulse Ox Last 24 Hr 97.2 F-98.3 F 67-86 16-20 151-161/72-88 97-100 Exam: General:no acute distress. alert and oriented, mood and affect are normal HEENT: no new lesions, sclerae are clear, mouth and pharynx benign Neck: supple, trachea midline, no JVD noted Lungs: no rales ronchi or wheeze is noted. pt comfortable without accesory muscle use to assist with breathing CV: RRR grade 2 aortic sclerosis murmur rub or gallop is noted. Abd: soft and nontender, BSNA, no masses. Ext: no cyanosis, clubbing or edema Neuro: grossly intact without focal neurologic deficit. Result/EKG - Labs CBC & BMP: 04/16/17 04:18 04/16/17 04:18 Specialty Discharge - Follow Up or Referrals Follow up with: Juan Manuel Ladd Jr., MD [Physician] - 05/05/17 8:30 am (3 WEEKS)
--- NOTE | 2017-04-17 11:42 | Discharge Summary ---
Hospital Course - Hospital Course Hospital Course: 71 year old white female with a history of hypertension, afib, TIA, pneumonia, diverticulitis, carotid stenosis with carotid endarterectomy that presented to the ED with complaints of hip pain after a fall. She stated that she got up to use the restroom and "blacked out". Pt. stated that she fell but doesn't think she hit her head. She stated that she had no recollection of what happened. Pt deniesd chest pain, nauseousness, vision changes, tinnitus, or shortness of breath during the event and now. Pt. reported several "dizzy" episodes in the last couple of months but none in the last few days. She does have a laceration around the left eye. Pt. states she was slightly confused after the fall and remained on the floor until her called granddaughter for assistance. Pt is followed by Dr. Bentley, Dr. Hernandez, and Dr. Caruso. Pt. is on Eliquis for paroxysmal afib. On hip xray she had mildly displaced fracture to left hip. Patient was admitted to the hospitalist service. Orthopedics were consulted and patient was seen by Dr. Ladd who recommended nonoperative management of this partially displaced minimally comminuted greater trochanter fracture of the left hip. Since patient had an unexplained syncopal episode cardiology was consulted. Patient was evaluated by Dr. Valdes. Cardiology has arranged a Holter monitor with instructions to follow with Dr. Caruso in about 3 days. They have not cleared her for driving yet until she is fully evaluated for a syncopal episode. She is aware of instructions not to drive. She had no further syncopal episode while in the hospital and has no evidence of arrhythmias. She was discharged home on heart monitor. She is on a stable condition with discharge home with appropriate follow-up. Discharge instructions were provided. - Time spent with patient Time with patient DS: Less than 30 minutes Diagnosis - Discharge Diagnosis (1) Syncope Status: Resolved (2) Hip fracture, left Status: Acute Specialty Discharge - Follow Up or Referrals Follow up with: Juan Manuel Ladd Jr., MD [Physician] - 05/05/17 8:30 am (3 WEEKS) Discharge Plan - Discharge Data Condition at Discharge: Stable Discharge Diet: heart healthy, low salt diet Activity: resume usual activities as tolerated Hygiene: no restrictions, may shower Weight Bearing at Discharge: full weight bearing Driving: not until seen by doctor - Discharge Medications Continue Gabapentin 300 - 600 mg PO BEDTIME Alendronate Sodium 35 mg PO FR Losartan Potassium 50 mg PO QAM Apixaban [Eliquis] 5 mg PO BID NIFEdipine XL TAB [Procardia Xl] 30 mg PO BEDTIME HYDROcodone/ACETAMIN 7.5-325 [Stacy 7.5-325] 1 tablet PO BID PRN PRN Reason: Pain Fluticasone 50 Mcg Nasal [place] [Flonase Nasal [place]] 1 spray BOTH NARES BID Carvedilol 25 mg PO BID Rosuvastatin Calcium 20 mg PO BEDTIME Zolpidem Tartrate 10 mg PO BEDTIME Montelukast Sodium 10 mg PO QAM - Follow Up or Referral Follow Up: Juan Manuel Ladd Jr., MD [Physician] - 05/05/17 8:30 am (3 WEEKS) - Forms/Instructions Instructions: Syncope (DC), Hip Fracture (GEN) Exam - Constitutional Vitals: Period Temp Pulse Resp BP Sys/Sarmiento Pulse Ox Last 24 Hr 97.6 F-98.3 F 67-86 16-20 151-161/72-88 97-100 Exam: General: No Acute Distress HEENT: Normocephalic, atraumatic, Extra ocular movements intact Neck: Supple, No JVD Chest: Clear to auscultation B/L CV: S1 + S2 audible without murmur, gallop or rub Abd: soft, NT, Non-distended, BS + Ext: No edema Skin: No purpura, bruising or rash Rheumatologic: No Joint deformities Neurologic: Strength 5/5 all extremities, no gross sensory deficits Discharge Results Procedures and tests throughout hospitalization: Pending Orders 04/15/17 12:27 Osmolality,Urine Stat DS: Provider Date of admission: 04/15/17 08:59 Primary care physician: Berto Bentley MD Attending physician on admission: Eda Betancourt MD Consults: 04/15/17 09:17 Consult to Physician [CONS] Routine Comment: left hip fracture Consulting Provider: Juan Manuel Ladd Jr. Consulting Provider Notified: Yes When should Consulting Provider be notified: Now Person Notified: nereida chan called Date Notified: 04/15/17 Time Notified: 12:14 04/15/17 13:04 Consult to Pastoral Services [CONS] Routine Comment: Pastoral Screen: Request [employer] Machine [employer]ter Visit Pastoral Screen Source of Request: Patient 04/15/17 18:55 Consult to Physical Therapy [CONS] Routine Reason for Physical Therapy: Evaluate and Treat Consult Comment: Touchdown weight-bear to 25% on left 04/16/17 11:05 Consult to Physical Therapy [CONS] Routine Reason for Physical Therapy: Other Consult Comment: Deliver Standard Walker to rm 319 before patient is D/C'd home. 04/16/17 11:06 Consult to Case Mgmt/Social Srvs [CONS] Routine Reason for Case Mgmt/Social Srvs: Home Health Rehab Equipment Consult Comment: Deliver BSC to patient's room before D/C today home; Pt 5ft 8in 177 lbs 04/16/17 12:02 Consult to Physician [CONS] Routine Comment: Please evaluate for Syncope, pt with fall fracture Consulting Provider: Marley Smith When should Consulting Provider be notified: Now When should Consulting Provider be notified: Now Person Notified: [employer] messaging Date Notified: 04/16/17 Time Notified: 16:19 Consult Notification Comment: Left a message and the will call us back. Discharging clinician: Nazia Dyson MD
[2017-04-17 11:54] VITALS: BP 156/93
--- NOTE | 2017-04-20 16:24 | Physician Query Form ---
CLICK EDIT DOCUMENT TO SELECT QUERY ANSWER --> OK --> SIGN Sanaz Day RN Clinical Software Testing Specialist W) [phone] (f) [phone] [email or web address] PROVIDERS: Make your selection(s) from the choices in EACH section by typing an "x" and enter comments in the comment section. Please use your independent medical judgment in providing your response. This request does not imply that any particular answer is desired or expected. CLINICAL INDICATORS: (Providers should not edit this section) Based on documentation of serum creatinine from 1.4 to 0.9. GFR form 42 to 73. Treated with NS bolus followed by NS infusion Clarify which of the following most accurately represents the patient's renal status: ( ) Acute kidney injury (non-traumatic) ( ) Acute renal failure ( ) Acute renal failure with underlying Chronic Kidney Disease (CKD) - please provide stage below ( ) Acute renal failure with pathological renal lesion ( ) Acute renal failure with necrosis ( ) tubular ( ) medullary ( ) cortical ( ) CKD - please provide stage below ( ) End Stage Renal Disease ( ) Acute interstitial nephritis ( ) Hepatorenal syndrome (x ) Other, please specify: Acute Kidney Injury due to Dehydration ( ) Clinically unable to determine Chronic Kidney Disease Stages Source: National Kidney [employer] Foundation ( ) Stage I (eGFR > or = 90) ( ) Stage II (eGFR 60 - 89) ( ) Stage III (eGFR 30 - 59) ( ) Stage IV (eGFR 15 - 29) ( ) Stage V (eGFR < 15 or dialysis) COMMENTS: PLEASE ALSO DOCUMENT RESPONSE IN PROGRESS NOTES AND/OR DISCHARGE SUMMARY Use of terms such as suspected, likely, or probable (associated with a specific diagnosis that is being evaluated, monitored, or treated as if it exists) are acceptable and can be restated in the discharge summary if not ruled out. MTDD
== END 2017-04-17 12:58 | disposition home health service (06) | DRG 536 ==
LOC: N.EDINP 06:29 → N.ED 06:29 → OBSVTOIN 08:59 → SUATTDRO 08:59 → N.3E 12:00
PROVIDERS: ADMIT Internal Medicine; ATTEND Hospitalist

== ENCOUNTER 2017-11-16 05:48 | Inpatient (IN) ==
[2017-11-16] MEDS ORDERED: VANCOMYCIN INJ 1,000 MG in SODIUM CHLORIDE 0.9% 250 ML IV ONE (06:00)
[2017-11-16] MEDS ORDERED: ceFAZolin 1,000 MG in SYRINGE 1 EACH IV ONE (06:00)
[2017-11-16] MEDS ORDERED: ALBUTEROL 2.5 MG/3 ML NEB RESP TX ONE (08:00)
[2017-11-16] MEDS ORDERED: IPRATROPIUM 500 MCG/2.5 ML NEB RESP TX ONE (08:00)
[2017-11-16] MEDS ORDERED: DIAZEPAM 5 MG TABLET PO ONE (08:00)
[2017-11-16] MEDS ORDERED: FAMOTIDINE 20 MG TABLET PO ONE (08:00)
[2017-11-16] MEDS ORDERED: DIAZEPAM 5 MG TABLET ONE (10:36)
[2017-11-16] MEDS ORDERED: ceFAZolin 1,000 MG VIAL ONE (10:36)
[2017-11-16] MEDS ORDERED: VANCOMYCIN 1,000 MG VIAL ONE (10:36)
[2017-11-16] MEDS ORDERED: FAMOTIDINE 20 MG TABLET ONE (10:37)
[2017-11-16] MEDS: LACTATED RINGERS 1,000 ML IV SCH (10:50)
[2017-11-16] MEDS ORDERED: TRANEXAMIC ACID 1,000 MG/10 ML VIAL IV ONE (11:21)
[2017-11-16] MEDS ORDERED: ROPIVACAINE 0.5% 30 ML VIAL ONE ×2 (11:22→14:03)
[2017-11-16] MEDS ORDERED: MIDAZOLAM 2 MG/2 ML VIAL ONE ×2 (11:23→13:44)
[2017-11-16] MEDS ORDERED: TEMAZEPAM 7.5 MG CAPSULE PO PRN (12:22)
[2017-11-16] MEDS ORDERED: LACTULOSE 20 GM/30 ML UDCUP PO PRN (12:22)
[2017-11-16] MEDS ORDERED: ONDANSETRON 4 MG/2 ML VIAL IV PRN ×2 (12:22→13:53)
[2017-11-16] MEDS ORDERED: NALOXONE 0.4 MG/ML VIAL IV PRN (12:22)
[2017-11-16] MEDS ORDERED: diphenhydrAMINE CAP 25 MG CAPSULE PO PRN (12:22)
[2017-11-16] MEDS ORDERED: MAGNESIUM HYDROXIDE SUSP 30 ML UDCUP PO PRN (12:22)
[2017-11-16] MEDS ORDERED: PROMETHAZINE 25 MG/1 ML VIAL IM PRN (12:22)
[2017-11-16] MEDS ORDERED: BISACODYL 10 MG SUPP RECTAL PRN (12:22)
[2017-11-16] MEDS ORDERED: MORPHINE 2 MG/1 ML SYRINGE IV PRN (12:22)
[2017-11-16] MEDS ORDERED: PROPOFOL 200 MG/20 ML VIAL IV ONE (13:43)
[2017-11-16] MEDS ORDERED: SEVOFLURANE 1 UNIT/15 MINUTE INH ONE (13:44)
[2017-11-16] MEDS ORDERED: fentaNYL 100 MCG/2 ML VIAL ONE (13:45)
[2017-11-16] MEDS ORDERED: ONDANSETRON 4 MG/2 ML VIAL ONE (13:45)
[2017-11-16] MEDS ORDERED: KETOROLAC 30 MG/1 ML VIAL ONE (13:45)
[2017-11-16] MEDS ORDERED: ACETAMINOPHEN INJ 1,000 MG in PREMIX 1 EACH IV ONE (13:58)
[2017-11-16] MEDS: HYDROmorphone 2 MG/1 ML VIAL IV PRN ×4 (14:14→14:37)
[2017-11-16] MEDS ORDERED: MORPHINE PCA 30 MG/30 ML SYRINGE IV ONE (14:35)
[2017-11-16] MEDS: MORPHINE PCA 30 MG/30 ML SYRINGE IV SCH (14:43)
[2017-11-16] MEDS ORDERED: GABAPENTIN 300 MG CAPSULE PO PRN ×2 (15:27)
[2017-11-16] MEDS ORDERED: MORPHINE 10 MG/1 ML VIAL IV PRN (15:28)
[2017-11-16] MEDS ORDERED: INFLUENZA VIRUS VACCINE 0.5 ML SYRINGE IM ONE (15:46)
[2017-11-16 16:04] LABS: Basophils # 0.1 10*3/uL (0.0-0.2); Basophils % 0.6 % (0.0-0.8); Eosinophils # 0.5 10*3/uL (0.0-0.87); Eosinophils % 5.8 % (0.00-10.9); Hematocrit 32.5 VOL% (35.7-47.0); Hemoglobin 10.8 GM/DL (12.0-16.0); Immature Granulocytes % 0.5 %; Immature Granulocytes Absolute 0.05 #; Lymphocytes # 0.9 10*3/uL (1.4-4.0); Lymphocytes % 9.7 % (21.3-54.2); Mean Corpuscular HGB Conc 33.2 GM/DL (32-36); Mean Corpuscular Hemoglobin 30 PG (27-34); Mean Corpuscular Volume 89.8 FL (87-102); Mean Platelet Volume 9.9 FL (9.6-12.0); Monocytes # 0.6 10*3/uL (0.11-0.8); Neutrophils # 7.2 10*3/uL (1.4-7.4); Neutrophils % 77.4 % (38.7-73.9); Platelet Count 254 T/CUMM (130-400); Red Blood Count 3.62 MC/CUMM (3.8-5.5); Red Cell Distribution Width 13.4 % (9.3-17.3); White Blood Count 9.3 T/CUMM (4-12)
[2017-11-16 16:24] LABS: Calcium 8.8 MG/DL (8.5-10.1); Osmolality,Calculated 278.7 MOS/KG (273-304); Potassium 4.4 MMOL/L (3.5-5.1)
[2017-11-16] MEDS: ceFAZolin 1,000 MG in SYRINGE 1 EACH IV SCH (18:50)
[2017-11-16] MEDS: CARVEDILOL 25 MG TABLET PO SCH (20:36)
[2017-11-16] MEDS: ROSUVASTATIN 20 MG TABLET PO SCH (20:36)
[2017-11-16] MEDS: DOCUSATE SODIUM 100 MG CAPSULE PO SCH (20:36)
[2017-11-16] MEDS ORDERED: TEMAZEPAM 7.5 MG CAPSULE PO SCH (21:00)
[2017-11-16] MEDS: APIXABAN 5 MG TABLET PO SCH (21:35)
[2017-11-16] MEDS ORDERED: FONDAPARINUX 2.5 MG/0.5 ML SYRINGE SUBCUT SCH (23:00)
[2017-11-17] MEDS ORDERED: ceFAZolin 1,000 MG in SYRINGE 1 EACH IV SCH (04:00)
[2017-11-17 05:30] LABS: Basophils % 0.5 % (0.0-0.8); Eosinophils # 0.5 10*3/uL (0.0-0.87); Eosinophils % 5.9 % (0.00-10.9); Hematocrit 29.6 VOL% (35.7-47.0); Hemoglobin 9.4 GM/DL (12.0-16.0); Immature Granulocytes % 0.3 %; Immature Granulocytes Absolute 0.02 #; Lymphocytes % 12.4 % (21.3-54.2); Mean Corpuscular HGB Conc 31.8 GM/DL (32-36); Mean Corpuscular Hemoglobin 29 PG (27-34); Mean Corpuscular Volume 92.5 FL (87-102); Mean Platelet Volume 9.8 FL (9.6-12.0); Monocytes # 0.7 10*3/uL (0.11-0.8); Monocytes % 9.3 % (1.7-12.7); Neutrophils # 5.6 10*3/uL (1.4-7.4); Neutrophils % 71.6 % (38.7-73.9); Platelet Count 167 T/CUMM (130-400); Red Cell Distribution Width 13.2 % (9.3-17.3); White Blood Count 7.8 T/CUMM (4-12)
[2017-11-17 05:59] LABS: Osmolality,Calculated 274.8 MOS/KG (273-304); Potassium 4.4 MMOL/L (3.5-5.1)
[2017-11-17] MEDS: ceFAZolin 1,000 MG in SYRINGE 1 EACH IV SCH (06:29)
[2017-11-17] MEDS: DOCUSATE SODIUM 100 MG CAPSULE PO SCH ×2 (08:54→20:23)
[2017-11-17] MEDS: CARVEDILOL 25 MG TABLET PO SCH ×2 (08:55→20:23)
[2017-11-17] MEDS: APIXABAN 5 MG TABLET PO SCH ×2 (08:55→20:23)
[2017-11-17] MEDS: LACTATED RINGERS 1,000 ML IV SCH ×2 (09:06→09:33)
[2017-11-17] MEDS ORDERED: ACETAMINOPHEN 325 MG TABLET PO PRN (12:23)
[2017-11-17] MEDS: MORPHINE PCA 30 MG/30 ML SYRINGE IV SCH ×2 (13:34→16:02)
[2017-11-17 16:40] LABS: Apearance,Urine Slightly Hazy (Clear); Bacteria,Urine Occasional /HPF (Few); Bilirubin,Urine Negative (Negative); Blood, Urine Small mg/dL (Negative); Glucose,Urine (UA) Negative (Negative); Ketones,Urine Negative (Negative); Mucus,Urine Occasional /LPF (Occasional); Nitrite,Urine Negative (Negative); Protein,Urine Negative; RBC,Urine 7 /HPF (0-4); Squamous Epithelial Cell,Urine Occasional /HPF (0-10); Urine Color Yellow (Yellow); Urine Specific Gravity 1.012 (1.001-1.035); Urine Urobilinogen < 2.0 EU/DL (0.2-1.0); WBC,Urine 30 /HPF (0-6)
[2017-11-17] MEDS: ROSUVASTATIN 20 MG TABLET PO SCH (20:23)
[2017-11-18 05:11] LABS: Basophils % 0.4 % (0.0-0.8); Eosinophils # 0.4 10*3/uL (0.0-0.87); Eosinophils % 4.3 % (0.00-10.9); Hematocrit 26.9 VOL% (35.7-47.0); Immature Granulocytes % 0.4 %; Immature Granulocytes Absolute 0.04 #; Lymphocytes # 0.9 10*3/uL (1.4-4.0); Lymphocytes % 9.4 % (21.3-54.2); Mean Corpuscular HGB Conc 33.5 GM/DL (32-36); Mean Corpuscular Hemoglobin 30 PG (27-34); Mean Corpuscular Volume 88.8 FL (87-102); Monocytes # 1.1 10*3/uL (0.11-0.8); Monocytes % 11.5 % (1.7-12.7); Neutrophils # 6.8 10*3/uL (1.4-7.4); Platelet Count 191 T/CUMM (130-400); Red Blood Count 3.03 MC/CUMM (3.8-5.5); Red Cell Distribution Width 13.2 % (9.3-17.3); White Blood Count 9.2 T/CUMM (4-12)
[2017-11-18 05:38] LABS: Hypochromasia 1+; Ovalocytes Slight; Platelet Estimate Adequate
[2017-11-18] MEDS: LACTATED RINGERS 1,000 ML IV SCH (06:15)
[2017-11-18] MEDS: CARVEDILOL 25 MG TABLET PO SCH (08:47)
[2017-11-18] MEDS: DOCUSATE SODIUM 100 MG CAPSULE PO SCH (08:47)
[2017-11-18] MEDS: APIXABAN 5 MG TABLET PO SCH (08:47)
[2017-11-18] MEDS ORDERED: LEVOFLOXACIN 500 MG TABLET PO SCH (10:00)
[2017-11-18] MEDS ORDERED: MONTELUKAST 10 MG TABLET PO SCH (10:00)
[2017-11-18 11:19] VITALS: BP 112/76
[2017-11-19] MEDS ORDERED: NON-FORMULARY MEDICATION (Alendronate Sodium [Alendronate Sodium] 35 MG) PO SCH (12:25)
== END 2017-11-18 16:30 | disposition home health service (06) | DRG 470 ==
LOC: N.OR 05:48 → N.SDSINP 05:49 → N.3E 12:22
PROVIDERS: ADMIT Orthopaedic Surgery; ATTEND Orthopaedic Surgery

== ENCOUNTER 2017-12-29 20:12 | Inpatient (IN) ==
[2017-12-29] MEDS ORDERED: MAGNESIUM HYDROXIDE SUSP 30 ML UDCUP PO PRN (22:58)
[2017-12-29] MEDS ORDERED: ONDANSETRON 4 MG/2 ML VIAL IV PRN (22:58)
[2017-12-29 23:40] LABS: Basophils # 0.1 10*3/uL (0.0-0.2); Basophils % 0.8 % (0.0-0.8); Eosinophils # 0.7 10*3/uL (0.0-0.87); Eosinophils % 6.7 % (0.00-10.9); Hematocrit 35.7 VOL% (35.7-47.0); Hemoglobin 11.6 GM/DL (12.0-16.0); Immature Granulocytes % 0.7 %; Immature Granulocytes Absolute 0.07 #; Lymphocytes # 1.2 10*3/uL (1.4-4.0); Lymphocytes % 11.2 % (21.3-54.2); Mean Corpuscular HGB Conc 32.5 GM/DL (32-36); Mean Corpuscular Hemoglobin 29 PG (27-34); Mean Corpuscular Volume 88.4 FL (87-102); Mean Platelet Volume 9.4 FL (9.6-12.0); Monocytes # 0.8 10*3/uL (0.11-0.8); Monocytes % 7.5 % (1.7-12.7); Neutrophils # 7.8 10*3/uL (1.4-7.4); Neutrophils % 73.1 % (38.7-73.9); Platelet Count 259 T/CUMM (130-400); Red Blood Count 4.04 MC/CUMM (3.8-5.5); Red Cell Distribution Width 13.2 % (9.3-17.3); White Blood Count 10.7 T/CUMM (4-12)
[2017-12-29] MEDS ORDERED: fentaNYL 100 MCG/2 ML VIAL IV STA (23:44)
[2017-12-29] MEDS ORDERED: LORazepam 2 MG/1 ML VIAL IV STA (23:44)
[2017-12-29] MEDS ORDERED: fentaNYL 100 MCG/2 ML VIAL ONE (23:51)
[2017-12-29] MEDS ORDERED: LORazepam 2 MG/1 ML VIAL ONE (23:51)
[2017-12-30 00:01] LABS: Albumin 3.7 G/DL (3.4-5.0); Bilirubin,Total 0.6 MG/DL (0.2-1.0); Calcium 9.1 MG/DL (8.5-10.1); Potassium 4.4 MMOL/L (3.5-5.1); Total Protein 7.6 G/DL (6.4-8.3)
[2017-12-30] MEDS ORDERED: hydrALAZINE 20 MG/1 ML VIAL IV STA (00:19)
[2017-12-30] MEDS ORDERED: fentaNYL 100 MCG/2 ML VIAL IV STA (00:51)
[2017-12-30] MEDS ORDERED: ONDANSETRON 4 MG/2 ML VIAL IV STA (00:51)
[2017-12-30 01:08] LABS: Apearance,Urine CLEAR (Clear); Bacteria,Urine Occasional /HPF (Few); Bilirubin,Urine Negative (Negative); Blood, Urine Moderate mg/dL (Negative); Glucose,Urine (UA) Negative (Negative); Ketones,Urine Negative (Negative); Nitrite,Urine Negative (Negative); Protein,Urine Negative; Squamous Epithelial Cell,Urine Occasional /HPF (0-10); Urine Color Colorless (Yellow); Urine Specific Gravity 1.003 (1.001-1.035); Urine Urobilinogen < 2.0 EU/DL (0.2-1.0); WBC,Urine 2 /HPF (0-6)
[2017-12-30] MEDS: DEXTROSE 5% NACL 0.45% 1,000 ML IV SCH ×3 (01:20→23:41)
[2017-12-30] MEDS ORDERED: FAMOTIDINE 20 MG TABLET PO ONE (10:10)
[2017-12-30] MEDS ORDERED: DIAZEPAM 5 MG TABLET PO ONE (10:10)
[2017-12-30] MEDS: CARVEDILOL 25 MG TABLET PO SCH ×2 (12:04→17:24)
[2017-12-30] MEDS: MONTELUKAST 10 MG TABLET PO SCH (12:05)
[2017-12-30] MEDS ORDERED: ceFAZolin 1,000 MG in SYRINGE 1 EACH IV ONE (14:00)
[2017-12-30] MEDS ORDERED: BUPIVACAINE SPINAL 0.75% 2 ML AMP SPINAL ONE (16:07)
[2017-12-30] MEDS ORDERED: PROMETHAZINE 25 MG/1 ML VIAL IM PRN (17:24)
[2017-12-30] MEDS ORDERED: LACTULOSE 20 GM/30 ML UDCUP PO PRN (17:24)
[2017-12-30] MEDS ORDERED: BISACODYL 10 MG SUPP RECTAL PRN (17:24)
[2017-12-30] MEDS ORDERED: MORPHINE 4 MG/1 ML VIAL IV PRN (17:24)
[2017-12-30] MEDS ORDERED: PROPOFOL 200 MG/20 ML VIAL IV ONE (17:42)
[2017-12-30] MEDS ORDERED: MIDAZOLAM 2 MG/2 ML VIAL ONE (17:42)
[2017-12-30] MEDS ORDERED: SEVOFLURANE 1 UNIT/15 MINUTE INH ONE (17:42)
[2017-12-30] MEDS ORDERED: ONDANSETRON 4 MG/2 ML VIAL ONE (17:42)
[2017-12-30] MEDS ORDERED: PHENYLEPHRINE 1 MG/10 ML SYRINGE IV ONE (17:42)
[2017-12-30] MEDS ORDERED: ONDANSETRON 4 MG/2 ML VIAL IV PRN (18:07)
[2017-12-30] MEDS: HYDROmorphone 2 MG/1 ML VIAL IV PRN ×2 (18:12→18:18)
[2017-12-30] MEDS ORDERED: diphenhydrAMINE CAP 25 MG CAPSULE PO PRN (18:47)
[2017-12-30] MEDS: GABAPENTIN 300 MG CAPSULE PO SCH (21:38)
[2017-12-30] MEDS: TEMAZEPAM 7.5 MG CAPSULE PO SCH (21:38)
[2017-12-30] MEDS: ROSUVASTATIN 20 MG TABLET PO SCH (21:39)
[2017-12-30] MEDS: ceFAZolin 1,000 MG in SYRINGE 1 EACH IV SCH (23:37)
[2017-12-31 04:31] LABS: Basophils # 0.1 10*3/uL (0.0-0.2); Basophils % 0.8 % (0.0-0.8); Eosinophils # 0.8 10*3/uL (0.0-0.87); Eosinophils % 9.9 % (0.00-10.9); Hematocrit 29.1 VOL% (35.7-47.0); Hemoglobin 9.6 GM/DL (12.0-16.0); Immature Granulocytes % 0.4 %; Immature Granulocytes Absolute 0.03 #; Lymphocytes # 1.2 10*3/uL (1.4-4.0); Lymphocytes % 15.1 % (21.3-54.2); Mean Corpuscular Hemoglobin 29 PG (27-34); Mean Corpuscular Volume 88.2 FL (87-102); Mean Platelet Volume 9.5 FL (9.6-12.0); Monocytes # 0.8 10*3/uL (0.11-0.8); Monocytes % 9.9 % (1.7-12.7); Neutrophils # 4.9 10*3/uL (1.4-7.4); Neutrophils % 63.9 % (38.7-73.9); Platelet Count 235 T/CUMM (130-400); Red Cell Distribution Width 13.4 % (9.3-17.3); White Blood Count 7.7 T/CUMM (4-12)
[2017-12-31 05:00] LABS: Calcium 8.3 MG/DL (8.5-10.1); Osmolality,Calculated 268.2 MOS/KG (273-304); Potassium 4.5 MMOL/L (3.5-5.1)
[2017-12-31] MEDS: ceFAZolin 1,000 MG in SYRINGE 1 EACH IV SCH ×2 (07:48→15:17)
[2017-12-31] MEDS ORDERED: MORPHINE 10 MG/1 ML VIAL IV PRN (09:38)
[2017-12-31] MEDS ORDERED: MORPHINE 4 MG/1 ML VIAL IV PRN (10:00)
[2017-12-31] MEDS: CARVEDILOL 25 MG TABLET PO SCH ×2 (10:37→17:25)
[2017-12-31] MEDS: APIXABAN 5 MG TABLET PO SCH ×2 (10:38→20:35)
[2017-12-31] MEDS: MONTELUKAST 10 MG TABLET PO SCH (10:53)
[2017-12-31] MEDS: TEMAZEPAM 7.5 MG CAPSULE PO SCH (20:35)
[2017-12-31] MEDS: GABAPENTIN 300 MG CAPSULE PO SCH (20:35)
[2017-12-31] MEDS: ROSUVASTATIN 20 MG TABLET PO SCH (20:53)
[2018-01-01 05:29] LABS: Basophils # 0.1 10*3/uL (0.0-0.2); Basophils % 0.7 % (0.0-0.8); Eosinophils # 0.7 10*3/uL (0.0-0.87); Eosinophils % 9.3 % (0.00-10.9); Hematocrit 28.5 VOL% (35.7-47.0); Hemoglobin 9.3 GM/DL (12.0-16.0); Immature Granulocytes % 0.5 %; Immature Granulocytes Absolute 0.04 #; Lymphocytes # 1.2 10*3/uL (1.4-4.0); Lymphocytes % 16.3 % (21.3-54.2); Mean Corpuscular HGB Conc 32.6 GM/DL (32-36); Mean Corpuscular Hemoglobin 28 PG (27-34); Mean Corpuscular Volume 86.9 FL (87-102); Mean Platelet Volume 9.5 FL (9.6-12.0); Monocytes % 13.7 % (1.7-12.7); Neutrophils # 4.4 10*3/uL (1.4-7.4); Neutrophils % 59.5 % (38.7-73.9); Platelet Count 233 T/CUMM (130-400); Red Blood Count 3.28 MC/CUMM (3.8-5.5); Red Cell Distribution Width 13.3 % (9.3-17.3); White Blood Count 7.4 T/CUMM (4-12)
[2018-01-01 06:01] LABS: Calcium 8.4 MG/DL (8.5-10.1); Osmolality,Calculated 267.4 MOS/KG (273-304); Potassium 4.3 MMOL/L (3.5-5.1)
[2018-01-01 08:01] VITALS: BP 153/64
[2018-01-01] MEDS: CARVEDILOL 25 MG TABLET PO SCH (08:45)
[2018-01-01] MEDS: APIXABAN 5 MG TABLET PO SCH (08:45)
[2018-01-01] MEDS: MONTELUKAST 10 MG TABLET PO SCH (10:28)
[2018-01-05] MEDS ORDERED: ALENDRONATE SODIUM 35 MG PO SCH (08:50)
== END 2018-01-01 11:20 | disposition home health service (06) | DRG 481 ==
LOC: EDBD → EDUNIT# → N.ED 20:12 → N.EDINP 22:58 → N.3E 23:12
PROVIDERS: ADMIT Orthopaedic Surgery; ATTEND Orthopaedic Surgery

== ENCOUNTER 2018-05-05 05:58 | Inpatient (IN) ==
[2018-05-05] MEDS ORDERED: ceFAZolin 1,000 MG in SYRINGE 1 EACH IV ONE (06:00)
[2018-05-05] MEDS ORDERED: VANCOMYCIN INJ 1,000 MG in SODIUM CHLORIDE 0.9% 250 ML IV ONE (06:00)
[2018-05-05] MEDS ORDERED: VANCOMYCIN 1,000 MG VIAL ONE (06:49)
[2018-05-05] MEDS ORDERED: ceFAZolin 1,000 MG VIAL ONE (06:49)
[2018-05-05] MEDS: LACTATED RINGERS 1,000 ML IV SCH (07:02)
[2018-05-05] MEDS ORDERED: BISACODYL 10 MG SUPP RECTAL PRN (07:11)
[2018-05-05] MEDS ORDERED: ONDANSETRON 4 MG/2 ML VIAL IV PRN ×2 (07:11→09:15)
[2018-05-05] MEDS ORDERED: LACTULOSE 20 GM/30 ML UDCUP PO PRN (07:11)
[2018-05-05] MEDS ORDERED: PROMETHAZINE 25 MG/1 ML VIAL IM PRN (07:11)
[2018-05-05] MEDS ORDERED: MAGNESIUM HYDROXIDE SUSP 30 ML UDCUP PO PRN (07:11)
[2018-05-05] MEDS ORDERED: TEMAZEPAM 7.5 MG CAPSULE PO PRN (07:14)
[2018-05-05] MEDS ORDERED: fentaNYL 100 MCG/2 ML VIAL ONE (09:09)
[2018-05-05] MEDS ORDERED: SEVOFLURANE 1 UNIT/15 MINUTE INH ONE (09:09)
[2018-05-05] MEDS ORDERED: PROPOFOL 200 MG/20 ML VIAL IV ONE (09:09)
[2018-05-05] MEDS ORDERED: ROCURONIUM 100 MG/10 ML VIAL IV ONE (09:10)
[2018-05-05] MEDS ORDERED: PHENYLEPHRINE 1 MG/10 ML SYRINGE IV ONE (09:10)
[2018-05-05] MEDS ORDERED: LACTATED RINGERS 1,000 ML IV ONE (09:10)
[2018-05-05] MEDS ORDERED: ONDANSETRON 4 MG/2 ML VIAL ONE ×2 (09:10→09:14)
[2018-05-05] MEDS ORDERED: ACETAMINOPHEN 1,000 MG/100 ML VIAL IV ONE (09:10)
[2018-05-05] MEDS ORDERED: DEXAMETHASONE 10 MG/1 ML VIAL ONE (09:10)
[2018-05-05] MEDS ORDERED: TRANEXAMIC ACID 1,000 MG/10 ML VIAL ONE (09:10)
[2018-05-05] MEDS ORDERED: GLYCOPYRROLATE 0.4 MG/2 ML VIAL ONE (09:10)
[2018-05-05] MEDS ORDERED: SODIUM CHLORIDE 0.9% 100 ML IV ONE (09:11)
[2018-05-05] MEDS ORDERED: NEOSTIGMINE 10 MG/10 ML VIAL ONE (09:11)
[2018-05-05] MEDS ORDERED: HYDROmorphone 2 MG/1 ML VIAL ONE (09:14)
[2018-05-05] MEDS: HYDROmorphone 2 MG/1 ML VIAL IV PRN ×6 (09:15→22:26)
[2018-05-05 09:21] LABS: Apearance,Urine CLEAR (Clear); Bilirubin,Urine Negative (Negative); Blood, Urine Negative (Negative); Glucose,Urine (UA) Negative (Negative); Ketones,Urine Negative (Negative); Nitrite,Urine Negative (Negative); Protein,Urine Negative; RBC,Urine <1 /HPF (0-4); Squamous Epithelial Cell,Urine Occasional /HPF (0-10); Urine Color Straw (Yellow); Urine Specific Gravity 1.005 (1.001-1.035); Urine Urobilinogen < 2.0 EU/DL (0.2-1.0); WBC,Urine <1 /HPF (0-6)
[2018-05-05] MEDS: DOCUSATE SODIUM 100 MG CAPSULE PO SCH ×2 (12:16→20:52)
[2018-05-05] MEDS: CARVEDILOL 12.5 MG TABLET PO SCH (12:16)
[2018-05-05] MEDS: APIXABAN 5 MG TABLET PO SCH ×2 (12:44→20:52)
[2018-05-05] MEDS: diphenhydrAMINE CAP 25 MG CAPSULE PO PRN ×2 (12:44→20:51)
[2018-05-05] MEDS: CIPROFLOXACIN 250 MG TABLET PO SCH ×2 (12:44→20:51)
[2018-05-05] MEDS: ceFAZolin 1,000 MG in SYRINGE 1 EACH IV SCH ×2 (16:46→22:27)
[2018-05-05] MEDS: GABAPENTIN 300 MG CAPSULE PO PRN (20:51)
[2018-05-05] MEDS: ROSUVASTATIN 20 MG TABLET PO SCH (20:51)
[2018-05-05] MEDS: TEMAZEPAM 7.5 MG CAPSULE PO PRN (20:51)
[2018-05-05] MEDS: CARVEDILOL 25 MG TABLET PO SCH (20:52)
[2018-05-06] MEDS: diphenhydrAMINE CAP 25 MG CAPSULE PO PRN (03:03)
[2018-05-06] MEDS: HYDROmorphone 2 MG/1 ML VIAL IV PRN ×3 (03:51→22:16)
[2018-05-06 05:36] LABS: Basophils % 0.1 % (0.0-0.8); Hemoglobin 8.2 GM/DL (12.0-16.0); Immature Granulocytes % 0.7 %; Immature Granulocytes Absolute 0.09 #; Lymphocytes # 0.8 10*3/uL (1.4-4.0); Lymphocytes % 6.8 % (21.3-54.2); Mean Corpuscular HGB Conc 34.2 GM/DL (32-36); Mean Corpuscular Hemoglobin 30 PG (27-34); Mean Corpuscular Volume 87.3 FL (87-102); Mean Platelet Volume 9.8 FL (9.6-12.0); Monocytes # 0.8 10*3/uL (0.11-0.8); Monocytes % 6.4 % (1.7-12.7); Neutrophils # 10.4 10*3/uL (1.4-7.4); Platelet Count 306 T/CUMM (130-400); Red Blood Count 2.75 MC/CUMM (3.8-5.5); Red Cell Distribution Width 14.6 % (9.3-17.3); White Blood Count 12.1 T/CUMM (4-12)
[2018-05-06 06:04] LABS: Calcium 8.1 MG/DL (8.5-10.1); Osmolality,Calculated 271.1 MOS/KG (273-304); Potassium 4.4 MMOL/L (3.5-5.1)
[2018-05-06] MEDS: LACTATED RINGERS 1,000 ML IV SCH (06:04)
[2018-05-06] MEDS ORDERED: ACETAMINOPHEN 325 MG TABLET PO PRN (07:12)
[2018-05-06] MEDS: APIXABAN 5 MG TABLET PO SCH ×2 (09:07→21:10)
[2018-05-06] MEDS: CARVEDILOL 12.5 MG TABLET PO SCH (09:07)
[2018-05-06] MEDS: DOCUSATE SODIUM 100 MG CAPSULE PO SCH ×2 (09:07→21:10)
[2018-05-06] MEDS: CIPROFLOXACIN 250 MG TABLET PO SCH ×2 (09:07→21:11)
[2018-05-06] MEDS ORDERED: SODIUM CHLORIDE 0.9% 1,000 ML IV PRN (09:43)
[2018-05-06] MEDS: TEMAZEPAM 7.5 MG CAPSULE PO PRN (21:10)
[2018-05-06] MEDS: ROSUVASTATIN 20 MG TABLET PO SCH (21:10)
[2018-05-06] MEDS: GABAPENTIN 300 MG CAPSULE PO PRN (21:10)
[2018-05-06] MEDS: CARVEDILOL 25 MG TABLET PO SCH (21:10)
[2018-05-07 05:09] LABS: Basophils # 0.1 10*3/uL (0.0-0.2); Basophils % 0.6 % (0.0-0.8); Eosinophils % 0.3 % (0.00-10.9); Hematocrit 24.6 VOL% (35.7-47.0); Hemoglobin 8.1 GM/DL (12.0-16.0); Immature Granulocytes % 0.7 %; Immature Granulocytes Absolute 0.06 #; Lymphocytes % 11.1 % (21.3-54.2); Mean Corpuscular HGB Conc 32.9 GM/DL (32-36); Mean Corpuscular Hemoglobin 30 PG (27-34); Mean Corpuscular Volume 89.5 FL (87-102); Mean Platelet Volume 9.6 FL (9.6-12.0); Monocytes # 1.1 10*3/uL (0.11-0.8); Monocytes % 11.8 % (1.7-12.7); Neutrophils # 6.8 10*3/uL (1.4-7.4); Neutrophils % 75.5 % (38.7-73.9); Platelet Count 200 T/CUMM (130-400); Red Blood Count 2.75 MC/CUMM (3.8-5.5); Red Cell Distribution Width 15.1 % (9.3-17.3)
[2018-05-07] MEDS: CIPROFLOXACIN 250 MG TABLET PO SCH ×2 (08:53→21:19)
[2018-05-07] MEDS: DOCUSATE SODIUM 100 MG CAPSULE PO SCH ×2 (08:53→21:19)
[2018-05-07] MEDS: APIXABAN 5 MG TABLET PO SCH ×2 (08:53→21:19)
[2018-05-07] MEDS: CARVEDILOL 12.5 MG TABLET PO SCH (08:53)
[2018-05-07] MEDS: ROSUVASTATIN 20 MG TABLET PO SCH (21:19)
[2018-05-07] MEDS: CARVEDILOL 25 MG TABLET PO SCH (21:19)
[2018-05-07] MEDS: TEMAZEPAM 7.5 MG CAPSULE PO PRN (21:20)
[2018-05-07] MEDS: GABAPENTIN 300 MG CAPSULE PO PRN (21:23)
[2018-05-08] MEDS: HYDROmorphone 2 MG/1 ML VIAL IV PRN (02:51)
[2018-05-08 04:52] LABS: Basophils # 0.1 10*3/uL (0.0-0.2); Basophils % 0.8 % (0.0-0.8); Eosinophils # 0.4 10*3/uL (0.0-0.87); Eosinophils % 4.3 % (0.00-10.9); Hematocrit 24.2 VOL% (35.7-47.0); Hemoglobin 7.6 GM/DL (12.0-16.0); Immature Granulocytes % 0.8 %; Immature Granulocytes Absolute 0.07 #; Lymphocytes # 1.3 10*3/uL (1.4-4.0); Lymphocytes % 15.8 % (21.3-54.2); Mean Corpuscular HGB Conc 31.4 GM/DL (32-36); Mean Corpuscular Hemoglobin 29 PG (27-34); Mean Corpuscular Volume 91.3 FL (87-102); Mean Platelet Volume 9.5 FL (9.6-12.0); Monocytes # 1.1 10*3/uL (0.11-0.8); Monocytes % 13.5 % (1.7-12.7); Neutrophils # 5.5 10*3/uL (1.4-7.4); Neutrophils % 64.8 % (38.7-73.9); Platelet Count 196 T/CUMM (130-400); Red Blood Count 2.65 MC/CUMM (3.8-5.5); White Blood Count 8.4 T/CUMM (4-12)
[2018-05-08] MEDS: CIPROFLOXACIN 250 MG TABLET PO SCH ×2 (09:00→20:33)
[2018-05-08] MEDS: CARVEDILOL 12.5 MG TABLET PO SCH (09:01)
[2018-05-08] MEDS: APIXABAN 5 MG TABLET PO SCH ×2 (09:01→20:33)
[2018-05-08] MEDS: DOCUSATE SODIUM 100 MG CAPSULE PO SCH ×2 (09:01→20:35)
[2018-05-08] MEDS: ROSUVASTATIN 20 MG TABLET PO SCH (20:33)
[2018-05-08] MEDS: GABAPENTIN 300 MG CAPSULE PO PRN (20:34)
[2018-05-08] MEDS: TEMAZEPAM 7.5 MG CAPSULE PO PRN (20:35)
[2018-05-08] MEDS: CARVEDILOL 25 MG TABLET PO SCH (20:41)
[2018-05-09] MEDS: CIPROFLOXACIN 250 MG TABLET PO SCH (08:32)
[2018-05-09] MEDS: APIXABAN 5 MG TABLET PO SCH (08:33)
[2018-05-09] MEDS: DOCUSATE SODIUM 100 MG CAPSULE PO SCH (08:33)
[2018-05-09] MEDS: CARVEDILOL 12.5 MG TABLET PO SCH (08:33)
[2018-05-09] MEDS ORDERED: MULTIVITAMIN (INTRINSIC) CAPSULE PO SCH (09:00)
[2018-05-09 10:20] LABS: Basophils # 0.1 10*3/uL (0.0-0.2); Basophils % 0.8 % (0.0-0.8); Eosinophils # 0.7 10*3/uL (0.0-0.87); Eosinophils % 8.1 % (0.00-10.9); Hemoglobin 8.8 GM/DL (12.0-16.0); Immature Granulocytes % 0.8 %; Immature Granulocytes Absolute 0.07 #; Lymphocytes % 11.4 % (21.3-54.2); Mean Corpuscular HGB Conc 32.6 GM/DL (32-36); Mean Corpuscular Hemoglobin 29 PG (27-34); Mean Corpuscular Volume 89.7 FL (87-102); Mean Platelet Volume 10.5 FL (9.6-12.0); Monocytes # 0.7 10*3/uL (0.11-0.8); Monocytes % 8.1 % (1.7-12.7); Neutrophils # 5.9 10*3/uL (1.4-7.4); Neutrophils % 70.8 % (38.7-73.9); Platelet Count 254 T/CUMM (130-400); Red Blood Count 3.01 MC/CUMM (3.8-5.5); Red Cell Distribution Width 14.8 % (9.3-17.3); White Blood Count 8.4 T/CUMM (4-12)
[2018-05-09 10:47] LABS: Calcium 8.3 MG/DL (8.5-10.1); Potassium 4.5 MMOL/L (3.5-5.1)
[2018-05-09 11:08] VITALS: BP 138/68
[2018-05-11] MEDS ORDERED: NON-FORMULARY MEDICATION (Alendronate Sodium [Alendronate Sodium] 35 MG) PO SCH (07:14)
== END 2018-05-09 11:41 | disposition home health service (06) | DRG 470 ==
LOC: N.OR 05:58 → N.SDSINP 05:59 → N.3E 10:02
PROVIDERS: ADMIT Orthopaedic Surgery; ATTEND Orthopaedic Surgery

== ENCOUNTER 2020-10-21 18:57 | Inpatient (IN) ==
[2020-10-21] MEDS ORDERED: ONDANSETRON 4 MG/2 ML VIAL IV STA (19:34)
[2020-10-21] MEDS ORDERED: HYDROmorphone 2 MG/1 ML VIAL IV STA (19:35)
[2020-10-21] MEDS ORDERED: LABETALOL 20 MG/4 ML SYRINGE IV STA (19:36)
[2020-10-21 20:21] LABS: Basophils # 0.1 10*3/uL (0.0-0.2); Basophils % 0.8 % (0.0-0.8); Eosinophils # 0.5 10*3/uL (0.0-0.87); Eosinophils % 4.4 % (0.00-10.9); Hematocrit 35.3 VOL% (35.7-47.0); Hemoglobin 11.2 GM/DL (12.0-16.0); Immature Granulocytes % 0.9 %; Immature Granulocytes Absolute 0.11 #; Lymphocytes % 8.9 % (21.3-54.2); Mean Corpuscular HGB Conc 31.7 GM/DL (32-36); Mean Corpuscular Volume 86.9 FL (87-102); Mean Platelet Volume 9.8 FL (9.6-12.0); Monocytes % 7.4 % (1.7-12.7); Neutrophils % 77.6 % (38.7-73.9); Platelet Count 326 T/CUMM (130-400); Red Blood Count 4.06 MC/CUMM (3.8-5.5); Red Cell Distribution Width 13.6 % (9.3-17.3); White Blood Count 11.7 T/CUMM (4-12)
[2020-10-21 20:34] LABS: INR 2.1
[2020-10-21 20:44] LABS: Albumin 3.6 G/DL (3.4-5.0); Bilirubin,Total 0.4 MG/DL (0.2-1.0); Calcium 9.9 MG/DL (8.5-10.1); Osmolality,Calculated 261.1 MOS/KG (273-304); Total Protein 8.4 G/DL (6.4-8.3)
[2020-10-21] MEDS ORDERED: DEXTROSE 50% 25 GM/50 ML VIAL IV PRN (21:22)
[2020-10-21] MEDS ORDERED: GLUCAGON 1 MG VIAL IM PRN (21:22)
[2020-10-21] MEDS ORDERED: hydrALAZINE 20 MG/1 ML VIAL IV PRN (21:29)
[2020-10-21] MEDS: SODIUM CHLORIDE 0.9% 1,000 ML IV SCH (22:30)
[2020-10-21] MEDS: ONDANSETRON 4 MG/2 ML VIAL IV PRN (23:23)
[2020-10-21] MEDS: HYDROmorphone 2 MG/1 ML VIAL IV PRN (23:23)
[2020-10-22] MEDS: HYDROmorphone 2 MG/1 ML VIAL IV PRN ×5 (02:32→20:01)
[2020-10-22] MEDS: ONDANSETRON 4 MG/2 ML VIAL IV PRN ×5 (02:33→20:02)
[2020-10-22 07:27] LABS: Basophils # 0.1 10*3/uL (0.0-0.2); Basophils % 0.5 % (0.0-0.8); Eosinophils # 0.1 10*3/uL (0.0-0.87); Eosinophils % 1.4 % (0.00-10.9); Hematocrit 34.9 VOL% (35.7-47.0); Hemoglobin 10.5 GM/DL (12.0-16.0); Immature Granulocytes % 0.5 %; Immature Granulocytes Absolute 0.05 #; Lymphocytes # 1.1 10*3/uL (1.4-4.0); Lymphocytes % 11.6 % (21.3-54.2); Mean Corpuscular HGB Conc 30.1 GM/DL (32-36); Mean Corpuscular Volume 90.4 FL (87-102); Mean Platelet Volume 9.7 FL (9.6-12.0); Monocytes % 6.7 % (1.7-12.7); Neutrophils % 79.3 % (38.7-73.9); Platelet Count 323 T/CUMM (130-400); Red Blood Count 3.86 MC/CUMM (3.8-5.5); Red Cell Distribution Width 13.7 % (9.3-17.3); White Blood Count 9.5 T/CUMM (4-12)
[2020-10-22 07:38] LABS: INR 2.1; PT Patient Result 21.4 SECS (9.8-11.9)
[2020-10-22 07:52] LABS: Albumin 3.3 G/DL (3.4-5.0); Bilirubin,Total 0.4 MG/DL (0.2-1.0); Osmolality,Calculated 268.5 MOS/KG (273-304); Potassium 4.9 MMOL/L (3.5-5.1)
[2020-10-22] MEDS: PANTOPRAZOLE 40 MG TABLET PO SCH (08:52)
[2020-10-22] MEDS: diphenhydrAMINE CAP 25 MG CAPSULE PO PRN ×2 (15:57→22:34)
[2020-10-22] MEDS: TEMAZEPAM 15 MG CAPSULE PO SCH (21:33)
[2020-10-22] MEDS: oxyCODONE/ACETAMINOPHEN 5-325 MG TABLET PO PRN (22:34)
[2020-10-23] MEDS ORDERED: fentaNYL 100 MCG/2 ML VIAL ONE (06:05)
[2020-10-23] MEDS ORDERED: ROCURONIUM 50 MG/5 ML VIAL IV ONE (06:06)
[2020-10-23] MEDS ORDERED: ONDANSETRON 4 MG/2 ML VIAL ONE (06:06)
[2020-10-23] MEDS ORDERED: propofoL 200 MG/20 ML VIAL IV ONE (06:06)
[2020-10-23] MEDS ORDERED: LIDOCAINE 2% 5 ML VIAL ONE (06:06)
[2020-10-23] MEDS ORDERED: BACITRACIN OINT 0.9 GM PACK TOP ONE (06:30)
[2020-10-23] MEDS ORDERED: ceFAZolin 1,000 MG in SYRINGE 1 EACH IV ONE (07:00)
[2020-10-23] MEDS ORDERED: VANCOMYCIN INJ 1,000 MG in SODIUM CHLORIDE 0.9% 250 ML IV ONE (07:00)
[2020-10-23] MEDS ORDERED: ALBUMIN 5% 12.5 GM/250 ML VIAL IV ONE (07:27)
[2020-10-23] MEDS ORDERED: PHENYLEPHRINE 10 MG/1 ML VIAL IV ONE (07:43)
[2020-10-23] MEDS ORDERED: GLYCOPYRROLATE 0.4 MG/2 ML VIAL ONE (08:27)
[2020-10-23] MEDS ORDERED: NEOSTIGMINE 10 MG/10 ML VIAL ONE ×3 (08:27)
[2020-10-23] MEDS ORDERED: LACTULOSE 20 GM/30 ML UDCUP PO PRN (08:42)
[2020-10-23] MEDS ORDERED: BISACODYL 10 MG SUPP RECTAL PRN (08:42)
[2020-10-23] MEDS ORDERED: TEMAZEPAM 7.5 MG CAPSULE PO PRN (08:42)
[2020-10-23] MEDS ORDERED: PROMETHAZINE 25 MG/1 ML VIAL IM PRN (08:42)
[2020-10-23] MEDS ORDERED: HYDROmorphone 2 MG/1 ML VIAL IV PRN ×2 (08:46→08:56)
[2020-10-23] MEDS ORDERED: SEVOFLURANE 1 UNIT/15 MINUTE INH ONE (08:50)
[2020-10-23] MEDS: PANTOPRAZOLE 40 MG TABLET PO SCH (10:23)
[2020-10-23] MEDS: DOCUSATE SODIUM 100 MG CAPSULE PO SCH ×2 (10:23→20:32)
[2020-10-23] MEDS: ceFAZolin 2,000 MG in PREMIX 1 EACH IV SCH ×2 (15:04→22:35)
[2020-10-23] MEDS: oxyCODONE/ACETAMINOPHEN 5-325 MG TABLET PO PRN ×2 (15:05→18:09)
[2020-10-23] MEDS: TEMAZEPAM 15 MG CAPSULE PO SCH (20:32)
[2020-10-23] MEDS: SODIUM CHLORIDE 0.9% 1,000 ML IV SCH (22:02)
[2020-10-23] MEDS: diphenhydrAMINE CAP 25 MG CAPSULE PO PRN (22:35)
[2020-10-24] MEDS: oxyCODONE/ACETAMINOPHEN 5-325 MG TABLET PO PRN ×2 (03:38→19:20)
[2020-10-24] MEDS: SODIUM CHLORIDE 0.9% 1,000 ML IV SCH (04:48)
[2020-10-24 05:32] LABS: Basophils % 0.4 % (0.0-0.8); Eosinophils # 0.4 10*3/uL (0.0-0.87); Eosinophils % 4.4 % (0.00-10.9); Hematocrit 24.2 VOL% (35.7-47.0); Hemoglobin 7.4 GM/DL (12.0-16.0); Immature Granulocytes % 0.4 %; Immature Granulocytes Absolute 0.04 #; Lymphocytes # 1.1 10*3/uL (1.4-4.0); Lymphocytes % 10.8 % (21.3-54.2); Mean Corpuscular HGB Conc 30.6 GM/DL (32-36); Mean Corpuscular Volume 90.3 FL (87-102); Mean Platelet Volume 10.1 FL (9.6-12.0); Monocytes % 8.8 % (1.7-12.7); Neutrophils % 75.2 % (38.7-73.9); Platelet Count 213 T/CUMM (130-400); Red Blood Count 2.68 MC/CUMM (3.8-5.5); Red Cell Distribution Width 13.8 % (9.3-17.3); White Blood Count 9.9 T/CUMM (4-12)
[2020-10-24 06:08] LABS: Calcium 7.6 MG/DL (8.5-10.1); Osmolality,Calculated 262.8 MOS/KG (273-304); Potassium 4.5 MMOL/L (3.5-5.1)
[2020-10-24] MEDS ORDERED: SODIUM CHLORIDE 0.9% 1,000 ML IV PRN (07:34)
[2020-10-24] MEDS: DOCUSATE SODIUM 100 MG CAPSULE PO SCH ×2 (08:29→21:26)
[2020-10-24] MEDS: PANTOPRAZOLE 40 MG TABLET PO SCH (08:29)
[2020-10-24] MEDS: diphenhydrAMINE CAP 25 MG CAPSULE PO PRN ×2 (11:02→19:21)
[2020-10-24] MEDS: WARFARIN 2.5 MG TABLET PO SCH (16:58)
[2020-10-24] MEDS ORDERED: BENZOCAINE/MENTHOL LOZENGE 18/BOX PO PRN (20:36)
[2020-10-24] MEDS: MAGNESIUM HYDROXIDE SUSP 30 ML UDCUP PO PRN (21:26)
[2020-10-24] MEDS: TEMAZEPAM 15 MG CAPSULE PO SCH (21:26)
[2020-10-25] MEDS: oxyCODONE/ACETAMINOPHEN 5-325 MG TABLET PO PRN ×3 (00:22→15:42)
[2020-10-25] MEDS: SODIUM CHLORIDE 0.9% 1,000 ML IV SCH ×3 (02:24→22:25)
[2020-10-25 06:11] LABS: Basophils # 0.1 10*3/uL (0.0-0.2); Basophils % 0.5 % (0.0-0.8); Eosinophils # 0.7 10*3/uL (0.0-0.87); Eosinophils % 7.2 % (0.00-10.9); Hematocrit 27.5 VOL% (35.7-47.0); Hemoglobin 8.9 GM/DL (12.0-16.0); Immature Granulocytes % 0.4 %; Immature Granulocytes Absolute 0.04 #; Lymphocytes # 1.2 10*3/uL (1.4-4.0); Mean Corpuscular HGB Conc 32.4 GM/DL (32-36); Mean Corpuscular Volume 85.7 FL (87-102); Mean Platelet Volume 10.3 FL (9.6-12.0); Monocytes % 10.4 % (1.7-12.7); Neutrophils % 69.5 % (38.7-73.9); Platelet Count 207 T/CUMM (130-400); Red Blood Count 3.21 MC/CUMM (3.8-5.5); Red Cell Distribution Width 15.1 % (9.3-17.3); White Blood Count 9.7 T/CUMM (4-12)
[2020-10-25 09:19] LABS: Calcium 7.8 MG/DL (8.5-10.1); Osmolality,Calculated 260.8 MOS/KG (273-304); Potassium 4.3 MMOL/L (3.5-5.1)
[2020-10-25] MEDS: DOCUSATE SODIUM 100 MG CAPSULE PO SCH ×2 (09:32→20:16)
[2020-10-25] MEDS: diphenhydrAMINE CAP 25 MG CAPSULE PO PRN ×3 (09:33→20:46)
[2020-10-25] MEDS: PANTOPRAZOLE 40 MG TABLET PO SCH (09:33)
[2020-10-25] MEDS: carvediloL 12.5 MG TABLET PO SCH ×2 (14:25→20:16)
[2020-10-25] MEDS: MENTHOL/ZINC OXIDE OINT 71 GM JAR TOP SCH ×2 (18:02→20:16)
[2020-10-25] MEDS: WARFARIN 2.5 MG TABLET PO SCH (18:02)
[2020-10-25] MEDS: TEMAZEPAM 15 MG CAPSULE PO SCH (20:16)
[2020-10-26 06:24] LABS: Basophils # 0.1 10*3/uL (0.0-0.2); Basophils % 0.6 % (0.0-0.8); Eosinophils # 0.6 10*3/uL (0.0-0.87); Eosinophils % 6.1 % (0.00-10.9); Hematocrit 28.2 VOL% (35.7-47.0); Immature Granulocytes % 0.7 %; Immature Granulocytes Absolute 0.07 #; Lymphocytes # 0.8 10*3/uL (1.4-4.0); Lymphocytes % 7.9 % (21.3-54.2); Mean Corpuscular HGB Conc 31.9 GM/DL (32-36); Mean Corpuscular Volume 86.2 FL (87-102); Mean Platelet Volume 10.3 FL (9.6-12.0); Monocytes % 10.4 % (1.7-12.7); Neutrophils % 74.3 % (38.7-73.9); Platelet Count 249 T/CUMM (130-400); Red Blood Count 3.27 MC/CUMM (3.8-5.5); Red Cell Distribution Width 15.1 % (9.3-17.3); White Blood Count 10.3 T/CUMM (4-12)
[2020-10-26 06:33] LABS: INR 2.1; PT Patient Result 22.1 SECS (9.8-11.9)
[2020-10-26 06:42] LABS: Calcium 7.6 MG/DL (8.5-10.1); Osmolality,Calculated 259.8 MOS/KG (273-304); Potassium 4.3 MMOL/L (3.5-5.1)
[2020-10-26] MEDS: MENTHOL/ZINC OXIDE OINT 71 GM JAR TOP SCH ×2 (09:38→20:02)
[2020-10-26] MEDS: DOCUSATE SODIUM 100 MG CAPSULE PO SCH ×2 (09:38→20:01)
[2020-10-26] MEDS: carvediloL 12.5 MG TABLET PO SCH ×2 (09:38→20:01)
[2020-10-26] MEDS: PANTOPRAZOLE 40 MG TABLET PO SCH (09:39)
[2020-10-26] MEDS: oxyCODONE/ACETAMINOPHEN 5-325 MG TABLET PO PRN ×2 (09:39→15:21)
[2020-10-26] MEDS: diphenhydrAMINE CAP 25 MG CAPSULE PO PRN ×3 (09:39→21:15)
[2020-10-26] MEDS: WARFARIN 2.5 MG TABLET PO SCH (17:38)
[2020-10-26] MEDS: ACETAMINOPHEN 325 MG TABLET PO PRN (19:40)
[2020-10-26] MEDS: TEMAZEPAM 15 MG CAPSULE PO SCH (20:02)
[2020-10-27] MEDS: oxyCODONE/ACETAMINOPHEN 5-325 MG TABLET PO PRN (01:06)
[2020-10-27 07:25] LABS: INR 2.3; PT Patient Result 23.6 SECS (9.8-11.9)
[2020-10-27] MEDS: PANTOPRAZOLE 40 MG TABLET PO SCH (08:56)
[2020-10-27] MEDS: carvediloL 12.5 MG TABLET PO SCH (08:56)
[2020-10-27] MEDS: MENTHOL/ZINC OXIDE OINT 71 GM JAR TOP SCH (08:57)
[2020-10-27] MEDS: DOCUSATE SODIUM 100 MG CAPSULE PO SCH (08:59)
[2020-10-27] MEDS: ACETAMINOPHEN 325 MG TABLET PO PRN (11:44)
[2020-10-27] MEDS: MAGNESIUM HYDROXIDE SUSP 30 ML UDCUP PO PRN (11:44)
[2020-10-27] MEDS: diphenhydrAMINE CAP 25 MG CAPSULE PO PRN (11:45)
[2020-10-27 13:26] VITALS: BP 158/93
== END 2020-10-27 16:30 | DRG 522 ==
LOC: EDBD → EDUNIT# → N.ED 18:57 → N.3E 10-22 02:39 → SUATTDRO 10-22 02:53
PROVIDERS: ADMIT Family Medicine; ATTEND Internal Medicine

== ENCOUNTER 2022-01-24 10:37 | Inpatient (IN) ==
[2022-01-24 12:03] LABS: Basophils # 0.1 10*3/uL (0.0-0.2); Basophils % 0.9 % (0.0-0.8); Eosinophils # 0.6 10*3/uL (0.0-0.87); Eosinophils % 5.9 % (0.00-10.9); Hematocrit 31.2 VOL% (35.7-47.0); Immature Granulocytes % 0.6 %; Immature Granulocytes Absolute 0.06 #; Lymphocytes # 1.1 10*3/uL (1.4-4.0); Lymphocytes % 10.8 % (21.3-54.2); Mean Corpuscular HGB Conc 32.1 GM/DL (32-36); Mean Corpuscular Volume 92.3 FL (87-102); Mean Platelet Volume 9.6 FL (9.6-12.0); Monocytes # 1.1 10*3/uL (0.11-0.8); Monocytes % 11.1 % (1.7-12.7); Neutrophils % 70.7 % (38.7-73.9); Platelet Count 250 T/CUMM (130-400); Red Blood Count 3.38 MC/CUMM (3.8-5.5); Red Cell Distribution Width 14.6 % (9.3-17.3); White Blood Count 10.2 T/CUMM (4-12)
[2022-01-24 12:14] LABS: PT Patient Result 10.8 SECS (10.5-12.0); Partial Thromboplastin Time 26.4 SECS (23.8-32.1)
[2022-01-24 12:26] LABS: Bilirubin,Total 0.4 MG/DL (0.20-1.00); Calcium 9.4 MG/DL (8.5-10.1); Osmolality,Calculated 268.4 MOS/KG (273-304); Potassium 3.8 MMOL/L (3.5-5.1); Total Protein 7.9 G/DL (6.4-8.2)
[2022-01-24] MEDS ORDERED: LABETALOL 20 MG/4 ML SYRINGE IV PRN (14:05)
[2022-01-24 14:42] LABS: Risk Ratio 2.93; VLDL Cholesterol 27.8 MG/DL
[2022-01-24] MEDS ORDERED: ONDANSETRON 4 MG/2 ML VIAL ONE (15:21)
[2022-01-24] MEDS ORDERED: DILTIAZEM 25 MG/5 ML VIAL IV ONE (15:21)
[2022-01-24] MEDS ORDERED: ONDANSETRON 4 MG/2 ML VIAL IV ONE (15:49)
[2022-01-24] MEDS ORDERED: DILTIAZEM 25 MG/5 ML VIAL IV STA (15:53)
[2022-01-24] MEDS ORDERED: hydrOXYzine HCL 25 MG TABLET PO ONE (16:00)
[2022-01-24] MEDS ORDERED: GABAPENTIN 300 MG CAPSULE PO PRN (16:12)
[2022-01-24] MEDS: ROSUVASTATIN 20 MG TABLET PO SCH (20:36)
[2022-01-24] MEDS: carvediloL 12.5 MG TABLET PO SCH (20:36)
[2022-01-25] MEDS ORDERED: ONDANSETRON 4 MG/2 ML VIAL IV ONE (00:14)
[2022-01-25] MEDS: ONDANSETRON 4 MG/2 ML VIAL IV PRN ×2 (04:52→11:40)
[2022-01-25 05:13] LABS: Basophils # 0.1 10*3/uL (0.0-0.2); Basophils % 0.8 % (0.0-0.8); Eosinophils # 0.6 10*3/uL (0.0-0.87); Eosinophils % 5.1 % (0.00-10.9); Hematocrit 31.3 VOL% (35.7-47.0); Hemoglobin 9.8 GM/DL (12.0-16.0); Immature Granulocytes % 0.6 %; Immature Granulocytes Absolute 0.07 #; Lymphocytes # 1.5 10*3/uL (1.4-4.0); Lymphocytes % 12.8 % (21.3-54.2); Mean Corpuscular HGB Conc 31.3 GM/DL (32-36); Mean Corpuscular Volume 92.6 FL (87-102); Mean Platelet Volume 9.3 FL (9.6-12.0); Monocytes # 0.9 10*3/uL (0.11-0.8); Neutrophils % 72.7 % (38.7-73.9); Platelet Count 271 T/CUMM (130-400); Red Blood Count 3.38 MC/CUMM (3.8-5.5); Red Cell Distribution Width 14.6 % (9.3-17.3); White Blood Count 11.8 T/CUMM (4-12)
[2022-01-25 05:39] LABS: Calcium 8.9 MG/DL (8.5-10.1); Osmolality,Calculated 272.1 MOS/KG (273-304); Potassium 3.9 MMOL/L (3.5-5.1)
[2022-01-25] MEDS: carvediloL 12.5 MG TABLET PO SCH ×2 (08:56→20:06)
[2022-01-25] MEDS: ASPIRIN 325 MG TABLET PO SCH (08:56)
[2022-01-25] MEDS: CLOPIDOGREL 75 MG TABLET PO SCH (08:56)
[2022-01-25] MEDS ORDERED: APIXABAN 5 MG TABLET PO ONE (11:00)
[2022-01-25] MEDS: ROSUVASTATIN 20 MG TABLET PO SCH (20:06)
[2022-01-25] MEDS: APIXABAN 5 MG TABLET PO SCH (20:06)
[2022-01-26] MEDS: ONDANSETRON 4 MG/2 ML VIAL IV PRN (00:13)
[2022-01-26 05:55] LABS: Basophils # 0.1 10*3/uL (0.0-0.2); Basophils % 0.8 % (0.0-0.8); Eosinophils # 0.8 10*3/uL (0.0-0.87); Eosinophils % 8.4 % (0.00-10.9); Hematocrit 31.1 VOL% (35.7-47.0); Hemoglobin 9.9 GM/DL (12.0-16.0); Immature Granulocytes % 0.3 %; Immature Granulocytes Absolute 0.03 #; Lymphocytes # 1.4 10*3/uL (1.4-4.0); Lymphocytes % 14.8 % (21.3-54.2); Mean Corpuscular HGB Conc 31.8 GM/DL (32-36); Mean Corpuscular Volume 91.7 FL (87-102); Mean Platelet Volume 9.7 FL (9.6-12.0); Monocytes # 0.9 10*3/uL (0.11-0.8); Monocytes % 10.2 % (1.7-12.7); Neutrophils % 65.5 % (38.7-73.9); Platelet Count 269 T/CUMM (130-400); Red Blood Count 3.39 MC/CUMM (3.8-5.5); Red Cell Distribution Width 14.3 % (9.3-17.3); White Blood Count 9.1 T/CUMM (4-12)
[2022-01-26 06:10] LABS: Calcium 9.1 MG/DL (8.5-10.1); Potassium 3.8 MMOL/L (3.5-5.1)
[2022-01-26] MEDS ORDERED: carvediloL 12.5 MG TABLET PO SCH (08:00)
[2022-01-26] MEDS: ASPIRIN 325 MG TABLET PO SCH (10:26)
[2022-01-26] MEDS: CLOPIDOGREL 75 MG TABLET PO SCH (10:26)
[2022-01-26] MEDS: APIXABAN 5 MG TABLET PO SCH (10:26)
[2022-01-26 12:00] VITALS: BP 105/60
[2022-01-27] MEDS ORDERED: ASPIRIN EC 81 MG TABLET PO SCH (09:00)
== END 2022-01-26 18:09 | disposition home or self-care (01) | DRG 65 ==
LOC: N.ED 10:37 → SUATTDRO 14:05 → N.EDINP 14:05 → N.3E 15:55
PROVIDERS: ADMIT Family Medicine; ATTEND Internal Medicine

== ENCOUNTER 2022-05-13 06:00 | Inpatient (IN) ==
[2022-05-07 12:54] LABS: Basophils # 0.1 10*3/uL (0.0-0.2); Basophils % 0.8 % (0.0-0.8); Eosinophils # 0.5 10*3/uL (0.0-0.87); Eosinophils % 6.6 % (0.00-10.9); Hematocrit 32.4 VOL% (35.7-47.0); Hemoglobin 10.1 GM/DL (12.0-16.0); Immature Granulocytes % 0.9 %; Immature Granulocytes Absolute 0.07 #; Lymphocytes # 1.3 10*3/uL (1.4-4.0); Lymphocytes % 16.8 % (21.3-54.2); Mean Corpuscular HGB Conc 31.2 GM/DL (32-36); Mean Corpuscular Volume 90.5 FL (87-102); Mean Platelet Volume 9.8 FL (9.6-12.0); Monocytes # 0.8 10*3/uL (0.11-0.8); Monocytes % 11.2 % (1.7-12.7); Neutrophils % 63.7 % (38.7-73.9); Platelet Count 283 T/CUMM (130-400); Red Blood Count 3.58 MC/CUMM (3.8-5.5); Red Cell Distribution Width 14.6 % (9.3-17.3); White Blood Count 7.4 T/CUMM (4-12)
[2022-05-07 13:01] LABS: PT Patient Result 11.1 SECS (10.1-12.1)
[2022-05-07 13:07] LABS: Alanine Aminotransferase 11 U/L (13-56); Albumin 3.3 G/DL (3.4-5.0); Alkaline Phosphatase 59 U/L (45-117); Aspartate Amino Transferase 19 U/L (0-37); Bilirubin,Total < 0.39 MG/DL (0.20-1.00); Blood Urea Nitrogen 15 MG/DL (7-18); Calcium 9.2 MG/DL (8.5-10.1); Carbon Dioxide 28 MMOL/L (21-32); Chloride 103 MMOL/L (98-107); Glucose 88 MG/DL (74-106); Osmolality,Calculated 272.8 MOS/KG (273-304); Potassium 4.7 MMOL/L (3.5-5.1); Sodium 137 MMOL/L (136-145); Total Protein 7.3 G/DL (6.4-8.2)
[2022-05-13] MEDS ORDERED: PHENYLEPHRINE DRIP 20 MG/250 ML PREMIX IV ONE ×2 (06:35→11:25)
[2022-05-13] MEDS ORDERED: HEPARIN 10,000 UNIT/10 ML VIAL ONE (06:38)
[2022-05-13] MEDS ORDERED: PROTAMINE SULFATE 50 MG/5 ML VIAL IV ONE (06:38)
[2022-05-13] MEDS ORDERED: ACETAMINOPHEN 500 MG TABLET PO ONE (07:02)
[2022-05-13] MEDS ORDERED: GABAPENTIN 400 MG CAPSULE PO ONE (07:02)
[2022-05-13] MEDS ORDERED: FAMOTIDINE 20 MG TABLET PO ONE (07:02)
[2022-05-13] MEDS: LACTATED RINGERS 1,000 ML IV SCH ×2 (07:45→11:52)
[2022-05-13] MEDS ORDERED: SUGAMMADEX 200 MG/2 ML VIAL IV ONE (10:48)
[2022-05-13] MEDS ORDERED: ONDANSETRON 4 MG/2 ML VIAL IV PRN ×2 (11:06→13:27)
[2022-05-13] MEDS ORDERED: GABAPENTIN 300 MG CAPSULE PO PRN (11:09)
[2022-05-13] MEDS ORDERED: hydrOXYzine HCL 25 MG TABLET PO PRN (11:09)
[2022-05-13] MEDS ORDERED: LIDOCAINE 2% 5 ML VIAL ONE (11:24)
[2022-05-13] MEDS ORDERED: propofoL 200 MG/20 ML VIAL IV ONE (11:24)
[2022-05-13] MEDS ORDERED: HEPARIN/NACL 0.9% 2 UNITS/ML 1,000 UNIT/500 ML BAG IV ONE (11:24)
[2022-05-13] MEDS ORDERED: SEVOFLURANE 1 UNIT/15 MINUTE INH ONE (11:24)
[2022-05-13] MEDS ORDERED: PHENYLEPHRINE 1 MG/10 ML SYRINGE IV ONE (11:24)
[2022-05-13] MEDS ORDERED: ROCURONIUM 50 MG/5 ML VIAL IV ONE (11:25)
[2022-05-13] MEDS ORDERED: MIDAZOLAM 2 MG/2 ML VIAL ONE (11:25)
[2022-05-13] MEDS ORDERED: fentaNYL 100 MCG/2 ML VIAL ONE (11:25)
[2022-05-13] MEDS ORDERED: SODIUM CHLORIDE 0.9% 1,000 ML IV ONE (11:26)
[2022-05-13 11:59] LABS: Calcium 8.7 MG/DL (8.5-10.1); Osmolality,Calculated 274.7 MOS/KG (273-304)
[2022-05-13] MEDS ORDERED: MEPERIDINE 50 MG/1 ML VIAL IV PRN (13:27)
[2022-05-13] MEDS ORDERED: MEPERIDINE 50 MG/1 ML VIAL ONE (13:29)
[2022-05-13] MEDS ORDERED: carvediloL 12.5 MG TABLET PO SCH (21:00)
[2022-05-14 05:00] LABS: Hematocrit 31.6 VOL% (35.7-47.0); Hemoglobin 9.8 GM/DL (12.0-16.0)
[2022-05-14 05:25] LABS: Calcium 8.7 MG/DL (8.5-10.1); Osmolality,Calculated 269.1 MOS/KG (273-304); Potassium 3.7 MMOL/L (3.5-5.1)
[2022-05-14] MEDS ORDERED: carvediloL 12.5 MG TABLET PO SCH (08:00)
[2022-05-14] MEDS ORDERED: DULoxetine 30 MG CAPSULE PO SCH (09:00)
[2022-05-14] MEDS ORDERED: ASPIRIN EC 81 MG TABLET PO SCH (09:00)
[2022-05-14 12:55] VITALS: BP 112/72
== END 2022-05-14 14:14 | disposition home or self-care (01) | DRG 269 ==
LOC: N.SDSINP 06:00 → N.3E 15:59
PROVIDERS: ADMIT Surgery; ATTEND Surgery
PROC: IRERAAA (2022-05-13 06:35)

== ENCOUNTER 2022-06-07 16:41 | Inpatient (IN) ==
[2022-06-07 17:47] LABS: Basophils # 0.1 10*3/uL (0.0-0.2); Basophils % 0.6 % (0.0-0.8); Eosinophils # 0.1 10*3/uL (0.0-0.87); Eosinophils % 0.7 % (0.00-10.9); Hemoglobin 11.9 GM/DL (12.0-16.0); Immature Granulocytes % 0.9 %; Immature Granulocytes Absolute 0.11 #; Lymphocytes # 1.8 10*3/uL (1.4-4.0); Lymphocytes % 14.1 % (21.3-54.2); Mean Corpuscular HGB Conc 32.2 GM/DL (32-36); Mean Corpuscular Volume 86.2 FL (87-102); Mean Platelet Volume 9.6 FL (9.6-12.0); Monocytes # 0.7 10*3/uL (0.11-0.8); Monocytes % 5.2 % (1.7-12.7); Neutrophils % 78.5 % (38.7-73.9); Platelet Count 452 T/CUMM (130-400); Red Blood Count 4.29 MC/CUMM (3.8-5.5); Red Cell Distribution Width 14.2 % (9.3-17.3); White Blood Count 12.6 T/CUMM (4-12)
[2022-06-07 18:03] LABS: Alanine Aminotransferase 13 U/L (13-56); Albumin 3.5 G/DL (3.4-5.0); Alkaline Phosphatase 79 U/L (45-117); Aspartate Amino Transferase 25 U/L (0-37); Blood Urea Nitrogen 18 MG/DL (7-18); Calcium 9.9 MG/DL (8.5-10.1); Carbon Dioxide 23 MMOL/L (21-32); Chloride 92 MMOL/L (98-107); Glucose 178 MG/DL (74-106); Osmolality,Calculated 260.2 MOS/KG (273-304); Potassium 3.4 MMOL/L (3.5-5.1); Sodium 127 MMOL/L (136-145); Total Protein 8.9 G/DL (6.4-8.2)
[2022-06-07 18:07] LABS: Urine Appearance Clear (Clear); Urine Color Yellow (Yellow)
[2022-06-07 18:09] LABS: Bilirubin,Urine Negative (Negative); Blood, Urine Trace mg/dL (Negative); Glucose,Urine (UA) Negative (Negative); Ketones,Urine Negative (Negative); Nitrite,Urine Negative (Negative); Protein,Urine >=300 mg/dL (Negative); Urine Specific Gravity >= 1.030 (1.001-1.035); Urine Urobilinogen 0.2 eU/dL (<2.0)
[2022-06-07 18:13] LABS: Hyaline Casts,Urine 8 /LPF (0-3); RBC,Urine 1 /HPF (0-4)
[2022-06-07] MEDS ORDERED: SODIUM CHLORIDE 0.9% 1,000 ML IV STA (18:21)
[2022-06-07] MEDS ORDERED: LABETALOL 20 MG/4 ML SYRINGE IV STA ×2 (18:23→22:53)
[2022-06-07] MEDS ORDERED: ONDANSETRON 4 MG/2 ML VIAL IV PRN (19:01)
[2022-06-07] MEDS ORDERED: DEXTROSE 10% 250 ML BAG IV PRN (19:01)
[2022-06-07] MEDS ORDERED: GLUCAGON 1 MG VIAL IM PRN (19:01)
[2022-06-07] MEDS ORDERED: LABETALOL 20 MG/4 ML SYRINGE IV PRN (19:05)
[2022-06-07] MEDS ORDERED: SODIUM CHLORIDE 0.45% 1,000 ML IV SCH (19:30)
[2022-06-07] MEDS: ENOXAPARIN 80 MG/0.8 ML SYRINGE SUBCUT SCH (20:50)
[2022-06-07] MEDS: hydrALAZINE 20 MG/1 ML VIAL IV PRN (20:55)
[2022-06-07] MEDS: POTASSIUM CHLORIDE RIDER 10 MEQ/100 ML PREMIX IV SCH ×2 (20:58→23:40)
[2022-06-07] MEDS ORDERED: DIAZEPAM 10 MG/2 ML SYRINGE IV STA (22:35)
[2022-06-07] MEDS ORDERED: levETIRAcetam 500 MG/5 ML VIAL IV ONE (22:39)
[2022-06-07] MEDS ORDERED: DIAZEPAM 10 MG/2 ML SYRINGE ONE (22:40)
[2022-06-07 23:09] LABS: Arterial Base Excess iSTAT -7 MMOL/L (-2.5-2.5); Arterial O2 Saturation iSTAT 100 % (95-100); Arterial PCO2 iSTAT 41 MM HG (35-48); Arterial PO2 iSTAT 396 MM HG (80-95); Arterial Total CO2 iSTAT 20 MMO/L (23-27); Arterial pH iSTAT 7.272 (7.35-7.45)
[2022-06-07] MEDS ORDERED: VANCOMYCIN INJ 1,250 MG in SODIUM CHLORIDE 0.9% 250 ML IV ONE (23:49)
[2022-06-08 00:10] LABS: Calcium 8.7 MG/DL (8.5-10.1); Osmolality,Calculated 263.8 MOS/KG (273-304); Potassium 3.2 MMOL/L (3.5-5.1)
[2022-06-08] MEDS ORDERED: SODIUM CHLORIDE 0.9% 500 ML IV STA (01:12)
[2022-06-08] MEDS ORDERED: SODIUM CHLORIDE 0.9% 1,000 ML IV STA (01:12)
[2022-06-08] MEDS: MEROPENEM 500 MG in SODIUM CHLORIDE 0.9% 100 ML IV SCH ×5 (01:15→16:10)
[2022-06-08] MEDS ORDERED: VANCOMYCIN INJ 1,250 MG in SODIUM CHLORIDE 0.9% 250 ML IV SCH (01:30)
[2022-06-08] MEDS ORDERED: NITROGLYCERIN 2% OINT 1 INCH/GM PACK TOP ONE (02:05)
[2022-06-08 04:42] LABS: Calcium 8.6 MG/DL (8.5-10.1); Osmolality,Calculated 255.4 MOS/KG (273-304); Potassium 3.9 MMOL/L (3.5-5.1)
[2022-06-08] MEDS ORDERED: POTASSIUM CHLORIDE RIDER 10 MEQ/100 ML PREMIX IV ONE (05:01)
[2022-06-08 05:21] LABS: Prolactin 7.2 ng/mL (2.8-29.2)
[2022-06-08] MEDS: POTASSIUM CHLORIDE RIDER 10 MEQ/100 ML PREMIX IV SCH ×2 (05:27→06:38)
[2022-06-08] MEDS: SODIUM CHLORIDE 0.9% 1,000 ML IV SCH ×3 (05:27→19:01)
[2022-06-08] MEDS ORDERED: LORazepam 2 MG/1 ML VIAL IV PRN ×2 (05:41)
[2022-06-08] MEDS: HYDROmorphone 1 MG/1 ML SYRINGE IV PRN ×5 (05:50→21:40)
[2022-06-08 05:56] LABS: Basophils # 0.1 10*3/uL (0.0-0.2); Basophils % 0.4 % (0.0-0.8); Eosinophils % 0.1 % (0.00-10.9); Hemoglobin 10.6 GM/DL (12.0-16.0); Immature Granulocytes % 0.5 %; Immature Granulocytes Absolute 0.07 #; Lymphocytes % 6.6 % (21.3-54.2); Mean Corpuscular HGB Conc 32.1 GM/DL (32-36); Mean Corpuscular Volume 87.1 FL (87-102); Mean Platelet Volume 9.5 FL (9.6-12.0); Monocytes # 1.3 10*3/uL (0.11-0.8); Monocytes % 8.9 % (1.7-12.7); Neutrophils % 83.5 % (38.7-73.9); Platelet Count 309 T/CUMM (130-400); Red Blood Count 3.79 MC/CUMM (3.8-5.5); Red Cell Distribution Width 13.9 % (9.3-17.3)
[2022-06-08] MEDS: ENOXAPARIN 80 MG/0.8 ML SYRINGE SUBCUT SCH (08:00)
[2022-06-08] MEDS ORDERED: niCARdipine INJ 25 MG in SODIUM CHLORIDE 0.9% 240 ML IV PRN (08:26)
[2022-06-08 09:25] LABS: PT Patient Result 11.4 SECS (10.1-12.1)
[2022-06-09] MEDS: HYDROmorphone 1 MG/1 ML SYRINGE IV PRN ×5 (01:10→23:07)
[2022-06-09] MEDS: MEROPENEM 500 MG in SODIUM CHLORIDE 0.9% 100 ML IV SCH ×3 (01:11→16:30)
[2022-06-09] MEDS: SODIUM CHLORIDE 0.9% 1,000 ML IV SCH ×3 (04:31→23:08)
[2022-06-09 06:01] LABS: Basophils # 0.1 10*3/uL (0.0-0.2); Basophils % 0.8 % (0.0-0.8); Eosinophils # 0.2 10*3/uL (0.0-0.87); Eosinophils % 1.3 % (0.00-10.9); Hemoglobin 9.5 GM/DL (12.0-16.0); Immature Granulocytes % 0.6 %; Immature Granulocytes Absolute 0.07 #; Lymphocytes % 8.6 % (21.3-54.2); Mean Corpuscular HGB Conc 31.7 GM/DL (32-36); Mean Corpuscular Volume 87.7 FL (87-102); Mean Platelet Volume 9.4 FL (9.6-12.0); Monocytes # 1.1 10*3/uL (0.11-0.8); Monocytes % 9.3 % (1.7-12.7); Neutrophils % 79.4 % (38.7-73.9); Platelet Count 233 T/CUMM (130-400); Red Blood Count 3.42 MC/CUMM (3.8-5.5); Red Cell Distribution Width 14.2 % (9.3-17.3)
[2022-06-09 06:22] LABS: Calcium 8.3 MG/DL (8.5-10.1); Osmolality,Calculated 263.5 MOS/KG (273-304); Potassium 3.6 MMOL/L (3.5-5.1)
[2022-06-09] MEDS: ASPIRIN EC 81 MG TABLET PO SCH (08:50)
[2022-06-09] MEDS: APIXABAN 5 MG TABLET PO SCH ×2 (08:50→20:17)
[2022-06-09] MEDS: carvediloL 12.5 MG TABLET PO SCH ×2 (08:50→20:17)
[2022-06-09] MEDS: oxyCODONE/ACETAMINOPHEN 5-325 MG TABLET PO PRN ×2 (08:50→14:10)
[2022-06-09] MEDS ORDERED: FUROSEMIDE 20 MG/2 ML VIAL IV ONE (09:41)
[2022-06-09] MEDS: PANTOPRAZOLE 40 MG TABLET PO SCH (10:45)
[2022-06-09] MEDS: LIDOCAINE 5% PATCH TRANSDERM SCH (10:45)
[2022-06-09] MEDS: levETIRAcetam 500 MG TABLET PO SCH (20:17)
[2022-06-09] MEDS: ZINC OXIDE PASTE 113 GM TUBE TOP SCH (22:06)
[2022-06-10] MEDS: MEROPENEM 500 MG in SODIUM CHLORIDE 0.9% 100 ML IV SCH ×3 (01:10→16:45)
[2022-06-10] MEDS: oxyCODONE/ACETAMINOPHEN 5-325 MG TABLET PO PRN ×4 (02:18→22:45)
[2022-06-10] MEDS: SODIUM CHLORIDE 0.9% 1,000 ML IV SCH (02:23)
[2022-06-10] MEDS: hydrALAZINE 20 MG/1 ML VIAL IV PRN (03:05)
[2022-06-10] MEDS: HYDROmorphone 1 MG/1 ML SYRINGE IV PRN (05:49)
[2022-06-10 06:08] LABS: Basophils # 0.1 10*3/uL (0.0-0.2); Basophils % 0.6 % (0.0-0.8); Eosinophils # 0.3 10*3/uL (0.0-0.87); Eosinophils % 2.9 % (0.00-10.9); Hematocrit 27.6 VOL% (35.7-47.0); Hemoglobin 8.5 GM/DL (12.0-16.0); Immature Granulocytes % 0.5 %; Immature Granulocytes Absolute 0.06 #; Lymphocytes % 8.8 % (21.3-54.2); Mean Corpuscular HGB Conc 30.8 GM/DL (32-36); Mean Corpuscular Volume 90.5 FL (87-102); Mean Platelet Volume 9.5 FL (9.6-12.0); Monocytes # 1.1 10*3/uL (0.11-0.8); Monocytes % 9.3 % (1.7-12.7); Neutrophils % 77.9 % (38.7-73.9); Platelet Count 209 T/CUMM (130-400); Red Blood Count 3.05 MC/CUMM (3.8-5.5); Red Cell Distribution Width 14.2 % (9.3-17.3); White Blood Count 11.8 T/CUMM (4-12)
[2022-06-10 06:29] LABS: Calcium 8.3 MG/DL (8.5-10.1); Osmolality,Calculated 270.1 MOS/KG (273-304); Potassium 3.4 MMOL/L (3.5-5.1)
[2022-06-10] MEDS: ASPIRIN EC 81 MG TABLET PO SCH (08:15)
[2022-06-10] MEDS: levETIRAcetam 500 MG TABLET PO SCH ×2 (08:15→20:45)
[2022-06-10] MEDS: carvediloL 12.5 MG TABLET PO SCH ×2 (08:15→20:45)
[2022-06-10] MEDS: PANTOPRAZOLE 40 MG TABLET PO SCH (08:15)
[2022-06-10] MEDS: APIXABAN 5 MG TABLET PO SCH ×2 (08:15→20:45)
[2022-06-10] MEDS: ZINC OXIDE PASTE 113 GM TUBE TOP SCH ×2 (08:22→20:45)
[2022-06-10] MEDS: LIDOCAINE 5% PATCH TRANSDERM SCH (09:36)
[2022-06-10] MEDS: DULoxetine 30 MG CAPSULE PO SCH (09:37)
[2022-06-10] MEDS ORDERED: MAGNESIUM SULF RIDER 2 GM/50 ML PREMIX IV ONE (10:42)
[2022-06-11] MEDS: MEROPENEM 500 MG in SODIUM CHLORIDE 0.9% 100 ML IV SCH ×3 (01:21→16:44)
[2022-06-11 04:41] LABS: Basophils # 0.1 10*3/uL (0.0-0.2); Basophils % 0.9 % (0.0-0.8); Eosinophils # 0.5 10*3/uL (0.0-0.87); Eosinophils % 5.8 % (0.00-10.9); Hematocrit 26.7 VOL% (35.7-47.0); Hemoglobin 8.4 GM/DL (12.0-16.0); Immature Granulocytes % 0.3 %; Immature Granulocytes Absolute 0.03 #; Lymphocytes # 1.1 10*3/uL (1.4-4.0); Lymphocytes % 12.2 % (21.3-54.2); Mean Corpuscular HGB Conc 31.5 GM/DL (32-36); Mean Corpuscular Volume 89.6 FL (87-102); Mean Platelet Volume 9.4 FL (9.6-12.0); Monocytes # 1.1 10*3/uL (0.11-0.8); Monocytes % 11.2 % (1.7-12.7); Neutrophils % 69.6 % (38.7-73.9); Platelet Count 222 T/CUMM (130-400); Red Blood Count 2.98 MC/CUMM (3.8-5.5); Red Cell Distribution Width 14.4 % (9.3-17.3); White Blood Count 9.4 T/CUMM (4-12)
[2022-06-11 05:14] LABS: Osmolality,Calculated 275.8 MOS/KG (273-304); Potassium 3.9 MMOL/L (3.5-5.1)
[2022-06-11] MEDS: DULoxetine 30 MG CAPSULE PO SCH (09:19)
[2022-06-11] MEDS: carvediloL 12.5 MG TABLET PO SCH ×2 (09:20→20:25)
[2022-06-11] MEDS: ASPIRIN EC 81 MG TABLET PO SCH (09:20)
[2022-06-11] MEDS: APIXABAN 5 MG TABLET PO SCH ×2 (09:20→20:25)
[2022-06-11] MEDS: levETIRAcetam 500 MG TABLET PO SCH ×2 (09:20→20:25)
[2022-06-11] MEDS: LIDOCAINE 5% PATCH TRANSDERM SCH (09:20)
[2022-06-11] MEDS: PANTOPRAZOLE 40 MG TABLET PO SCH (09:20)
[2022-06-11] MEDS: ZINC OXIDE PASTE 113 GM TUBE TOP SCH ×2 (09:21→20:25)
[2022-06-11] MEDS: oxyCODONE/ACETAMINOPHEN 5-325 MG TABLET PO PRN ×2 (10:39→23:05)
[2022-06-11 13:28] LABS: % Iron Saturation 6.9 % (18-50)
[2022-06-11 13:38] LABS: Folate 5.12 NG/ML (5.38-24.0)
[2022-06-12 05:24] LABS: Hematocrit 25.8 VOL% (35.7-47.0); Hemoglobin 8.2 GM/DL (12.0-16.0); Mean Corpuscular HGB Conc 31.8 GM/DL (32-36); Platelet Count 253 T/CUMM (130-400); Red Cell Distribution Width 14.6 % (9.3-17.3); White Blood Count 10.9 T/CUMM (4-12)
[2022-06-12 05:25] LABS: Basophils # 0.1 10*3/uL (0.0-0.2); Basophils % 0.6 % (0.0-0.8); Eosinophils # 0.6 10*3/uL (0.0-0.87); Eosinophils % 5.1 % (0.00-10.9); Immature Granulocytes % 0.4 %; Immature Granulocytes Absolute 0.04 #; Lymphocytes # 1.3 10*3/uL (1.4-4.0); Lymphocytes % 12.1 % (21.3-54.2); Mean Platelet Volume 10.1 FL (9.6-12.0); Monocytes # 1.3 10*3/uL (0.11-0.8); Monocytes % 11.6 % (1.7-12.7); Neutrophils % 70.2 % (38.7-73.9)
[2022-06-12 05:39] LABS: Calcium 8.7 MG/DL (8.5-10.1); Osmolality,Calculated 271.1 MOS/KG (273-304); Potassium 3.7 MMOL/L (3.5-5.1)
[2022-06-12] MEDS: MEROPENEM 500 MG in SODIUM CHLORIDE 0.9% 100 ML IV SCH ×2 (09:02)
[2022-06-12] MEDS: carvediloL 12.5 MG TABLET PO SCH (10:10)
[2022-06-12] MEDS: ASPIRIN EC 81 MG TABLET PO SCH (10:10)
[2022-06-12] MEDS: PANTOPRAZOLE 40 MG TABLET PO SCH (10:11)
[2022-06-12] MEDS ORDERED: MAGNESIUM SULF RIDER 2 GM/50 ML PREMIX IV PRN (10:11)
[2022-06-12] MEDS: levETIRAcetam 500 MG TABLET PO SCH ×2 (10:11→20:30)
[2022-06-12] MEDS: APIXABAN 5 MG TABLET PO SCH ×2 (10:11→20:30)
[2022-06-12] MEDS ORDERED: MAGNESIUM SULF RIDER 4 GM/100 ML PREMIX IV PRN (10:11)
[2022-06-12] MEDS: DULoxetine 30 MG CAPSULE PO SCH (10:11)
[2022-06-12] MEDS: LIDOCAINE 5% PATCH TRANSDERM SCH (10:11)
[2022-06-12] MEDS: ZINC OXIDE PASTE 113 GM TUBE TOP SCH ×2 (10:11→20:30)
[2022-06-12] MEDS: FOLIC ACID 1 MG TABLET PO SCH (11:47)
[2022-06-12] MEDS: oxyCODONE/ACETAMINOPHEN 5-325 MG TABLET PO PRN ×2 (15:06→23:40)
[2022-06-12] MEDS: carvediloL 25 MG TABLET PO SCH (17:21)
[2022-06-13] MEDS ORDERED: FERRIC GLUCONATE COMPLEX 125 MG in SODIUM CHLORIDE 0.9% 100 ML IV SCH (09:00)
[2022-06-13] MEDS: carvediloL 25 MG TABLET PO SCH ×2 (09:19→18:09)
[2022-06-13] MEDS: levETIRAcetam 500 MG TABLET PO SCH ×2 (09:20→20:10)
[2022-06-13] MEDS: APIXABAN 5 MG TABLET PO SCH ×2 (09:20→20:10)
[2022-06-13] MEDS: ASPIRIN EC 81 MG TABLET PO SCH (09:20)
[2022-06-13] MEDS: PANTOPRAZOLE 40 MG TABLET PO SCH (09:21)
[2022-06-13] MEDS: ZINC OXIDE PASTE 113 GM TUBE TOP SCH ×2 (09:21→20:10)
[2022-06-13] MEDS: FOLIC ACID 1 MG TABLET PO SCH (09:21)
[2022-06-13] MEDS: oxyCODONE/ACETAMINOPHEN 5-325 MG TABLET PO PRN ×2 (09:21→23:55)
[2022-06-13] MEDS: LIDOCAINE 5% PATCH TRANSDERM SCH (09:22)
[2022-06-13 10:30] LABS: Basophils # 0.1 10*3/uL (0.0-0.2); Basophils % 0.4 % (0.0-0.8); Eosinophils # 0.4 10*3/uL (0.0-0.87); Eosinophils % 3.3 % (0.00-10.9); Hematocrit 26.6 VOL% (35.7-47.0); Hemoglobin 8.6 GM/DL (12.0-16.0); Immature Granulocytes % 0.4 %; Immature Granulocytes Absolute 0.06 #; Lymphocytes # 1.2 10*3/uL (1.4-4.0); Lymphocytes % 9.3 % (21.3-54.2); Mean Corpuscular HGB Conc 32.3 GM/DL (32-36); Mean Corpuscular Volume 86.4 FL (87-102); Mean Platelet Volume 9.5 FL (9.6-12.0); Monocytes # 1.3 10*3/uL (0.11-0.8); Monocytes % 9.4 % (1.7-12.7); Neutrophils % 77.2 % (38.7-73.9); Platelet Count 234 T/CUMM (130-400); Red Blood Count 3.08 MC/CUMM (3.8-5.5); Red Cell Distribution Width 14.8 % (9.3-17.3); White Blood Count 13.3 T/CUMM (4-12)
[2022-06-13 10:44] LABS: Calcium 8.4 MG/DL (8.5-10.1); Osmolality,Calculated 265.7 MOS/KG (273-304); Potassium 3.4 MMOL/L (3.5-5.1)
[2022-06-13] MEDS ORDERED: MAGNESIUM SULF RIDER 2 GM/50 ML PREMIX IV ONE (13:58)
[2022-06-13] MEDS ORDERED: POTASSIUM CHLORIDE 20 MEQ TABLET PO ONE (13:59)
[2022-06-13] MEDS ORDERED: KETOROLAC 15 MG/1 ML VIAL IV PRN (13:59)
[2022-06-13] MEDS ORDERED: KETOROLAC 15 MG/1 ML VIAL IV ONE (14:00)
[2022-06-13] MEDS: FERRIC GLUCONATE COMPLEX 125 MG in SODIUM CHLORIDE 0.9% 100 ML IV SCH (14:27)
[2022-06-13] MEDS: DULoxetine 30 MG CAPSULE PO SCH (20:10)
[2022-06-14 05:53] LABS: Basophils # 0.1 10*3/uL (0.0-0.2); Basophils % 0.5 % (0.0-0.8); Eosinophils # 0.7 10*3/uL (0.0-0.87); Eosinophils % 6.1 % (0.00-10.9); Hematocrit 25.3 VOL% (35.7-47.0); Hemoglobin 8.3 GM/DL (12.0-16.0); Immature Granulocytes % 0.8 %; Immature Granulocytes Absolute 0.08 #; Lymphocytes # 1.4 10*3/uL (1.4-4.0); Lymphocytes % 12.8 % (21.3-54.2); Mean Corpuscular HGB Conc 32.8 GM/DL (32-36); Mean Corpuscular Volume 86.1 FL (87-102); Mean Platelet Volume 10.2 FL (9.6-12.0); Monocytes # 1.1 10*3/uL (0.11-0.8); Monocytes % 10.7 % (1.7-12.7); Neutrophils % 69.1 % (38.7-73.9); Platelet Count 228 T/CUMM (130-400); Red Blood Count 2.94 MC/CUMM (3.8-5.5); Red Cell Distribution Width 14.7 % (9.3-17.3); White Blood Count 10.6 T/CUMM (4-12)
[2022-06-14 06:10] LABS: Calcium 8.4 MG/DL (8.5-10.1); Osmolality,Calculated 260.8 MOS/KG (273-304); Potassium 3.5 MMOL/L (3.5-5.1)
[2022-06-14] MEDS: levETIRAcetam 500 MG TABLET PO SCH ×2 (09:54→20:29)
[2022-06-14] MEDS: FOLIC ACID 1 MG TABLET PO SCH (09:55)
[2022-06-14] MEDS: PANTOPRAZOLE 40 MG TABLET PO SCH (09:55)
[2022-06-14] MEDS: carvediloL 25 MG TABLET PO SCH ×2 (09:55→20:28)
[2022-06-14] MEDS: LIDOCAINE 5% PATCH TRANSDERM SCH (09:55)
[2022-06-14] MEDS: APIXABAN 5 MG TABLET PO SCH ×2 (09:55→20:29)
[2022-06-14] MEDS ORDERED: LACTULOSE 20 GM/30 ML UDCUP PO ONE (10:17)
[2022-06-14] MEDS ORDERED: FUROSEMIDE 40 MG/4 ML VIAL IV ONE (10:19)
[2022-06-14] MEDS: ASPIRIN EC 81 MG TABLET PO SCH (10:44)
[2022-06-14] MEDS ORDERED: KETOROLAC 15 MG/1 ML VIAL IV PRN ×2 (10:58→12:17)
[2022-06-14] MEDS: ZINC OXIDE PASTE 113 GM TUBE TOP SCH ×2 (14:42→20:29)
[2022-06-14] MEDS: FERRIC GLUCONATE COMPLEX 125 MG in SODIUM CHLORIDE 0.9% 100 ML IV SCH (14:49)
[2022-06-14] MEDS: FUROSEMIDE 40 MG/4 ML VIAL IV SCH (16:46)
[2022-06-14] MEDS: oxyCODONE/ACETAMINOPHEN 5-325 MG TABLET PO PRN ×2 (16:50→23:45)
[2022-06-14] MEDS: DULoxetine 30 MG CAPSULE PO SCH (20:29)
[2022-06-14] MEDS: KETOROLAC 15 MG/1 ML VIAL IV PRN (20:29)
[2022-06-15 05:41] LABS: Basophils # 0.1 10*3/uL (0.0-0.2); Basophils % 0.7 % (0.0-0.8); Eosinophils # 0.6 10*3/uL (0.0-0.87); Eosinophils % 6.8 % (0.00-10.9); Hematocrit 28.5 VOL% (35.7-47.0); Hemoglobin 9.2 GM/DL (12.0-16.0); Immature Granulocytes Absolute 0.09 #; Lymphocytes # 1.4 10*3/uL (1.4-4.0); Lymphocytes % 15.5 % (21.3-54.2); Mean Corpuscular HGB Conc 32.3 GM/DL (32-36); Mean Corpuscular Volume 85.6 FL (87-102); Mean Platelet Volume 9.9 FL (9.6-12.0); Monocytes % 11.1 % (1.7-12.7); Neutrophils % 64.9 % (38.7-73.9); Platelet Count 268 T/CUMM (130-400); Red Blood Count 3.33 MC/CUMM (3.8-5.5); Red Cell Distribution Width 14.5 % (9.3-17.3); White Blood Count 8.8 T/CUMM (4-12)
[2022-06-15 06:09] LABS: Calcium 8.7 MG/DL (8.5-10.1); Osmolality,Calculated 256.1 MOS/KG (273-304)
[2022-06-15] MEDS: oxyCODONE/ACETAMINOPHEN 5-325 MG TABLET PO PRN ×2 (06:30→18:02)
[2022-06-15] MEDS: APIXABAN 5 MG TABLET PO SCH ×2 (08:40→20:40)
[2022-06-15] MEDS: ASPIRIN EC 81 MG TABLET PO SCH (08:40)
[2022-06-15] MEDS: levETIRAcetam 500 MG TABLET PO SCH ×2 (08:40→20:40)
[2022-06-15] MEDS: FOLIC ACID 1 MG TABLET PO SCH (08:40)
[2022-06-15] MEDS: PANTOPRAZOLE 40 MG TABLET PO SCH (08:40)
[2022-06-15] MEDS: FUROSEMIDE 40 MG/4 ML VIAL IV SCH (08:41)
[2022-06-15] MEDS: carvediloL 25 MG TABLET PO SCH ×2 (08:41→18:02)
[2022-06-15] MEDS: ZINC OXIDE PASTE 113 GM TUBE TOP SCH ×2 (08:44→20:40)
[2022-06-15] MEDS: LIDOCAINE 5% PATCH TRANSDERM SCH (08:56)
[2022-06-15] MEDS: FERRIC GLUCONATE COMPLEX 125 MG in SODIUM CHLORIDE 0.9% 100 ML IV SCH (13:21)
[2022-06-15] MEDS: POTASSIUM BICARB EFFERVESCENT 20 MEQ TAB.EFF PO SCH ×2 (13:22→20:40)
[2022-06-15] MEDS: DULoxetine 30 MG CAPSULE PO SCH (20:40)
[2022-06-16 05:21] LABS: Basophils # 0.1 10*3/uL (0.0-0.2); Basophils % 0.7 % (0.0-0.8); Eosinophils # 0.7 10*3/uL (0.0-0.87); Eosinophils % 5.7 % (0.00-10.9); Hematocrit 28.7 VOL% (35.7-47.0); Hemoglobin 9.5 GM/DL (12.0-16.0); Immature Granulocytes % 1.6 %; Immature Granulocytes Absolute 0.19 #; Lymphocytes # 1.9 10*3/uL (1.4-4.0); Lymphocytes % 15.6 % (21.3-54.2); Mean Corpuscular HGB Conc 33.1 GM/DL (32-36); Mean Corpuscular Volume 87.5 FL (87-102); Mean Platelet Volume 9.9 FL (9.6-12.0); Monocytes # 1.7 10*3/uL (0.11-0.8); Monocytes % 13.5 % (1.7-12.7); Neutrophils % 62.9 % (38.7-73.9); Platelet Count 334 T/CUMM (130-400); Red Blood Count 3.28 MC/CUMM (3.8-5.5); Red Cell Distribution Width 14.7 % (9.3-17.3); White Blood Count 12.2 T/CUMM (4-12)
[2022-06-16 05:42] LABS: Calcium 8.5 MG/DL (8.5-10.1); Osmolality,Calculated 255.2 MOS/KG (273-304); Potassium 3.2 MMOL/L (3.5-5.1)
[2022-06-16] MEDS: carvediloL 25 MG TABLET PO SCH ×2 (08:09→16:29)
[2022-06-16] MEDS: APIXABAN 5 MG TABLET PO SCH ×2 (08:09→21:12)
[2022-06-16] MEDS: levETIRAcetam 500 MG TABLET PO SCH ×2 (08:09→21:12)
[2022-06-16] MEDS: PANTOPRAZOLE 40 MG TABLET PO SCH (08:09)
[2022-06-16] MEDS: ASPIRIN EC 81 MG TABLET PO SCH (08:09)
[2022-06-16] MEDS: FOLIC ACID 1 MG TABLET PO SCH (08:10)
[2022-06-16] MEDS: LIDOCAINE 5% PATCH TRANSDERM SCH (08:10)
[2022-06-16] MEDS: ZINC OXIDE PASTE 113 GM TUBE TOP SCH ×2 (08:10→21:24)
[2022-06-16] MEDS: oxyCODONE/ACETAMINOPHEN 5-325 MG TABLET PO PRN ×2 (08:10→21:11)
[2022-06-16] MEDS ORDERED: POTASSIUM CHLORIDE 20 MEQ TABLET PO ONE (11:00)
[2022-06-16] MEDS: FERRIC GLUCONATE COMPLEX 125 MG in SODIUM CHLORIDE 0.9% 100 ML IV SCH (13:43)
[2022-06-16] MEDS: KETOROLAC 15 MG/1 ML VIAL IV PRN ×2 (13:46→23:45)
[2022-06-16] MEDS: DULoxetine 30 MG CAPSULE PO SCH (21:23)
[2022-06-17 05:12] LABS: Basophils # 0.1 10*3/uL (0.0-0.2); Eosinophils # 0.7 10*3/uL (0.0-0.87); Eosinophils % 7.8 % (0.00-10.9); Hemoglobin 9.3 GM/DL (12.0-16.0); Immature Granulocytes % 1.2 %; Immature Granulocytes Absolute 0.11 #; Lymphocytes # 1.5 10*3/uL (1.4-4.0); Lymphocytes % 16.5 % (21.3-54.2); Mean Corpuscular HGB Conc 32.1 GM/DL (32-36); Mean Corpuscular Volume 87.1 FL (87-102); Mean Platelet Volume 10.1 FL (9.6-12.0); Monocytes % 11.4 % (1.7-12.7); Neutrophils % 62.1 % (38.7-73.9); Platelet Count 300 T/CUMM (130-400); Red Blood Count 3.33 MC/CUMM (3.8-5.5)
[2022-06-17 05:32] LABS: Calcium 8.7 MG/DL (8.5-10.1); Osmolality,Calculated 256.4 MOS/KG (273-304); Potassium 3.9 MMOL/L (3.5-5.1)
[2022-06-17] MEDS: LIDOCAINE 5% PATCH TRANSDERM SCH (09:22)
[2022-06-17] MEDS: APIXABAN 5 MG TABLET PO SCH (09:23)
[2022-06-17] MEDS: FOLIC ACID 1 MG TABLET PO SCH (09:24)
[2022-06-17] MEDS: carvediloL 25 MG TABLET PO SCH ×2 (09:24→17:54)
[2022-06-17] MEDS: levETIRAcetam 500 MG TABLET PO SCH ×2 (09:24→20:00)
[2022-06-17] MEDS: PANTOPRAZOLE 40 MG TABLET PO SCH (09:24)
[2022-06-17] MEDS: oxyCODONE/ACETAMINOPHEN 5-325 MG TABLET PO PRN ×2 (09:24→19:45)
[2022-06-17] MEDS: ASPIRIN EC 81 MG TABLET PO SCH (09:24)
[2022-06-17] MEDS ORDERED: COSYNTROPIN 0.25 MG VIAL IM ONE (09:36)
[2022-06-17] MEDS: ZINC OXIDE PASTE 113 GM TUBE TOP SCH ×2 (09:39→20:00)
[2022-06-17] MEDS: MONTELUKAST 10 MG TABLET PO SCH (10:26)
[2022-06-17] MEDS ORDERED: ACETAMINOPHEN 325 MG TABLET PO PRN (11:20)
[2022-06-17] MEDS ORDERED: LACTULOSE 20 GM/30 ML UDCUP PO ONE (11:24)
[2022-06-17] MEDS: FERRIC GLUCONATE COMPLEX 125 MG in SODIUM CHLORIDE 0.9% 100 ML IV SCH (14:22)
[2022-06-17 14:36] LABS: Hemoglobin 8.9 GM/DL (12.0-16.0)
[2022-06-17 20:00] LABS: Hematocrit 26.8 VOL% (35.7-47.0); Hemoglobin 8.7 GM/DL (12.0-16.0)
[2022-06-17] MEDS: DULoxetine 30 MG CAPSULE PO SCH (20:00)
[2022-06-17] MEDS: POLYETHYLENE GLYCOL POWDER 17 GM PACK PO SCH (21:30)
[2022-06-18] MEDS: KETOROLAC 15 MG/1 ML VIAL IV PRN (01:47)
[2022-06-18 03:11] LABS: Basophils # 0.1 10*3/uL (0.0-0.2); Basophils % 0.9 % (0.0-0.8); Eosinophils # 0.7 10*3/uL (0.0-0.87); Eosinophils % 7.1 % (0.00-10.9); Hematocrit 27.9 VOL% (35.7-47.0); Hemoglobin 9.1 GM/DL (12.0-16.0); Immature Granulocytes % 1.2 %; Immature Granulocytes Absolute 0.12 #; Lymphocytes # 1.2 10*3/uL (1.4-4.0); Lymphocytes % 11.8 % (21.3-54.2); Mean Corpuscular HGB Conc 32.6 GM/DL (32-36); Mean Corpuscular Volume 87.2 FL (87-102); Mean Platelet Volume 10.2 FL (9.6-12.0); Monocytes # 0.9 10*3/uL (0.11-0.8); Monocytes % 8.7 % (1.7-12.7); NRBC # 0.03 10*3/uL; Neutrophils % 70.3 % (38.7-73.9); Platelet Count 321 T/CUMM (130-400); Red Cell Distribution Width 15.2 % (9.3-17.3)
[2022-06-18 03:14] LABS: Calcium 9.1 MG/DL (8.5-10.1); Osmolality,Calculated 259.1 MOS/KG (273-304); Potassium 3.9 MMOL/L (3.5-5.1)
[2022-06-18 07:25] LABS: Hematocrit 29.3 VOL% (35.7-47.0); Hemoglobin 9.6 GM/DL (12.0-16.0)
[2022-06-18] MEDS: FOLIC ACID 1 MG TABLET PO SCH (08:00)
[2022-06-18] MEDS: carvediloL 25 MG TABLET PO SCH (08:00)
[2022-06-18] MEDS: ZINC OXIDE PASTE 113 GM TUBE TOP SCH (08:00)
[2022-06-18] MEDS: levETIRAcetam 500 MG TABLET PO SCH (08:00)
[2022-06-18] MEDS: ASPIRIN EC 81 MG TABLET PO SCH ×2 (08:01→09:53)
[2022-06-18] MEDS: POLYETHYLENE GLYCOL POWDER 17 GM PACK PO SCH (08:01)
[2022-06-18] MEDS: PANTOPRAZOLE 40 MG TABLET PO SCH (08:01)
[2022-06-18] MEDS: LIDOCAINE 5% PATCH TRANSDERM SCH (08:01)
[2022-06-18] MEDS: MONTELUKAST 10 MG TABLET PO SCH (08:12)
[2022-06-18 11:40] VITALS: BP 141/70
[2022-06-18] MEDS: FERRIC GLUCONATE COMPLEX 125 MG in SODIUM CHLORIDE 0.9% 100 ML IV SCH (13:24)
== END 2022-06-18 13:33 | disposition swing bed (61) | DRG 56 ==
LOC: N.ED 16:41 → SUATTDRO 18:59 → N.EDINP 18:59 → N.ICU 06-08 04:51 → N.5E 06-10 16:07
PROVIDERS: ADMIT Internal Medicine; ATTEND Internal Medicine

== ENCOUNTER 2022-08-27 10:55 | Inpatient (IN) ==
[2022-08-27 13:11] LABS: Urine Appearance Clear (Clear); Urine Color Yellow (Yellow); Urine pH 6.5 (4.5-8.0)
[2022-08-27 13:12] LABS: Bilirubin,Urine Negative (Negative); Blood, Urine Negative (Negative); Glucose,Urine (UA) Negative (Negative); Ketones,Urine Negative (Negative); Nitrite,Urine Negative (Negative); Protein,Urine >=300 mg/dL (Negative); Urine Specific Gravity 1.025 (1.001-1.035); Urine Urobilinogen 0.2 eU/dL (<2.0)
[2022-08-27 13:15] LABS: Bacteria,Urine Occasional /HPF (Few); Hyaline Casts,Urine 10 /LPF (0-3); Mucus,Urine Occasional /LPF (Occasional); RBC,Urine 2 /HPF (0-4); Squamous Epithelial Cell,Urine Occasional /HPF (0-10)
[2022-08-27 13:17] LABS: Basophils # 0.1 10*3/uL (0.0-0.2); Basophils % 1.3 % (0.0-0.8); Eosinophils # 0.2 10*3/uL (0.0-0.87); Hematocrit 37.2 VOL% (35.7-47.0); Hemoglobin 12.1 GM/DL (12.0-16.0); Immature Granulocytes % 0.3 %; Immature Granulocytes Absolute 0.02 #; Lymphocytes # 1.5 10*3/uL (1.4-4.0); Lymphocytes % 24.2 % (21.3-54.2); Mean Corpuscular HGB Conc 32.5 GM/DL (32-36); Mean Corpuscular Volume 95.9 FL (87-102); Mean Platelet Volume 9.6 FL (9.6-12.0); Monocytes # 0.8 10*3/uL (0.11-0.8); Monocytes % 13.2 % (1.7-12.7); Platelet Count 210 T/CUMM (130-400); Red Blood Count 3.88 MC/CUMM (3.8-5.5); Red Cell Distribution Width 14.8 % (9.3-17.3); White Blood Count 6.4 T/CUMM (4-12)
[2022-08-27 13:36] LABS: Albumin 3.4 G/DL (3.4-5.0); Bilirubin,Total 0.6 MG/DL (0.20-1.00); Calcium 9.7 MG/DL (8.5-10.1); Osmolality,Calculated 259.1 MOS/KG (273-304); Potassium 4.4 MMOL/L (3.5-5.1); Total Protein 8.3 G/DL (6.4-8.2)
[2022-08-27] MEDS ORDERED: SODIUM CHLORIDE 0.9% 1,000 ML IV STA (13:40)
[2022-08-27] MEDS ORDERED: cefTRIAXone 1,000 MG VIAL IM STA (14:46)
[2022-08-27] MEDS ORDERED: cefTRIAXone 1,000 MG in SODIUM CHLORIDE 0.9% 100 ML IV STA (15:12)
[2022-08-27] MEDS ORDERED: methylPREDNISolone SOD SUC 40 MG/1 ML VIAL IV ONE (15:20)
[2022-08-27] MEDS: AZITHROMYCIN INJ 500 MG in SODIUM CHLORIDE 0.9% 250 ML IV SCH (16:40)
[2022-08-27] MEDS: carvediloL 25 MG TABLET PO SCH (17:00)
[2022-08-27] MEDS: SODIUM CHLORIDE 0.9% 1,000 ML IV SCH (17:50)
[2022-08-27] MEDS: levETIRAcetam 500 MG/5 ML VIAL IV SCH (20:53)
[2022-08-27] MEDS: PANTOPRAZOLE 40 MG VIAL IV SCH (20:54)
[2022-08-27] MEDS: OSELTAMIVIR 30 MG CAPSULE PO SCH (20:54)
[2022-08-27] MEDS: POLYETHYLENE GLYCOL POWDER 17 GM PACK PO SCH (20:54)
[2022-08-27] MEDS: APIXABAN 5 MG TABLET PO SCH (20:54)
[2022-08-28] MEDS: SODIUM CHLORIDE 0.9% 1,000 ML IV SCH ×3 (03:52→17:14)
[2022-08-28 05:59] LABS: Basophils % 0.5 % (0.0-0.8); Hematocrit 33.5 VOL% (35.7-47.0); Immature Granulocytes % 0.5 %; Immature Granulocytes Absolute 0.01 #; Lymphocytes # 0.8 10*3/uL (1.4-4.0); Lymphocytes % 37.9 % (21.3-54.2); Mean Corpuscular HGB Conc 32.8 GM/DL (32-36); Mean Corpuscular Volume 95.4 FL (87-102); Mean Platelet Volume 9.7 FL (9.6-12.0); Monocytes # 0.1 10*3/uL (0.11-0.8); Monocytes % 4.4 % (1.7-12.7); Neutrophils % 56.7 % (38.7-73.9); Platelet Count 191 T/CUMM (130-400); Red Blood Count 3.51 MC/CUMM (3.8-5.5); Red Cell Distribution Width 14.5 % (9.3-17.3); White Blood Count 2.1 T/CUMM (4-12)
[2022-08-28 06:13] LABS: Osmolality,Calculated 269.4 MOS/KG (273-304)
[2022-08-28 06:40] LABS: Platelet Estimate Adequate
[2022-08-28] MEDS ORDERED: PANTOPRAZOLE 40 MG TABLET PO SCH (09:00)
[2022-08-28] MEDS: ASPIRIN EC 81 MG TABLET PO SCH (09:01)
[2022-08-28] MEDS: FOLIC ACID 1 MG TABLET PO SCH (09:01)
[2022-08-28] MEDS: OSELTAMIVIR 30 MG CAPSULE PO SCH ×2 (09:01→21:01)
[2022-08-28] MEDS: DULoxetine 30 MG CAPSULE PO SCH (09:01)
[2022-08-28] MEDS: MONTELUKAST 10 MG TABLET PO SCH (09:01)
[2022-08-28] MEDS: APIXABAN 5 MG TABLET PO SCH ×2 (09:01→21:01)
[2022-08-28] MEDS: carvediloL 25 MG TABLET PO SCH ×2 (09:01→17:14)
[2022-08-28] MEDS: levETIRAcetam 500 MG/5 ML VIAL IV SCH ×2 (09:03→22:54)
[2022-08-28] MEDS: PANTOPRAZOLE 40 MG VIAL IV SCH ×2 (09:03→22:53)
[2022-08-28] MEDS: POLYETHYLENE GLYCOL POWDER 17 GM PACK PO SCH ×2 (09:03→21:03)
[2022-08-28] MEDS: AZITHROMYCIN INJ 500 MG in SODIUM CHLORIDE 0.9% 250 ML IV SCH ×3 (15:18→22:51)
[2022-08-28] MEDS ORDERED: cefTRIAXone 1,000 MG in SODIUM CHLORIDE 0.9% 100 ML IV SCH (16:00)
[2022-08-28] MEDS ORDERED: TEMAZEPAM 15 MG CAPSULE PO PRN (18:22)
[2022-08-28] MEDS ORDERED: VANCOMYCIN INJ 1,000 MG in SODIUM CHLORIDE 0.9% 250 ML IV ONE (19:51)
[2022-08-28] MEDS: MENTHOL/ZINC OXIDE OINT 71 GM JAR TOP SCH (21:01)
[2022-08-29] MEDS: SODIUM CHLORIDE 0.9% 1,000 ML IV SCH ×2 (03:53→09:28)
[2022-08-29] MEDS: OSELTAMIVIR 30 MG CAPSULE PO SCH (08:19)
[2022-08-29] MEDS: APIXABAN 5 MG TABLET PO SCH (08:19)
[2022-08-29] MEDS: ASPIRIN EC 81 MG TABLET PO SCH (08:19)
[2022-08-29] MEDS: carvediloL 25 MG TABLET PO SCH (08:19)
[2022-08-29] MEDS: POLYETHYLENE GLYCOL POWDER 17 GM PACK PO SCH (08:19)
[2022-08-29] MEDS: PANTOPRAZOLE 40 MG VIAL IV SCH (08:19)
[2022-08-29] MEDS: FOLIC ACID 1 MG TABLET PO SCH (08:19)
[2022-08-29] MEDS: MONTELUKAST 10 MG TABLET PO SCH (08:19)
[2022-08-29] MEDS: DULoxetine 30 MG CAPSULE PO SCH (09:29)
[2022-08-29] MEDS: MENTHOL/ZINC OXIDE OINT 71 GM JAR TOP SCH (09:29)
[2022-08-29] MEDS: levETIRAcetam 500 MG/5 ML VIAL IV SCH (12:18)
[2022-08-29 12:27] VITALS: BP 161/94
[2022-08-29] MEDS ORDERED: DULoxetine 30 MG CAPSULE PO SCH (21:00)
== END 2022-08-29 14:10 | disposition home health service (06) | DRG 682 ==
LOC: EDBD → EDUNIT# → SUATTDRO → N.ED 10:55 → N.EDINP 15:17 → SUATTDRO 15:17 → N.EDINP 18:15 → N.TELEN 18:22
PROVIDERS: ADMIT Internal Medicine; ATTEND Internal Medicine